=== PATIENT | female | born 1955 | race African-American/Black ===

== ENCOUNTER 2020-02-04 08:18 | Outpatient (CLI) | payer MEDICARE, SELFPAY ==
--- NOTE | ~2020-02-04 | DEXA_ITS ---
Bone Density Report Name: Tosha Aguirre Age: 64 Sex: Female Ethnicity: Black Date of : 1955 Indication: postmenopausal; cancer; hysterectomy; rheumatoid arthritis; Referring Provider: Nasreen FISCHER Study: Bone densitometry was performed. Exam Date: February 04, 2020 Accession number: [id number] Bone Density: Region BMD T-score Z-score Classification AP Spine (L1-L4) 0.968 -0.7 0.3 Normal Femoral Neck (Left) 0.967 1.1 1.4 Normal Total Hip (Left) 1.071 1.1 1.2 Normal Total Hip Bilateral Avg 1.059 1.0 1.2 Normal Femoral Neck (Right) 0.982 1.2 1.5 Normal Total Hip (Right) 1.045 0.8 1.1 Normal World Health Organization criteria for BMD impression classify patients as: Normal (T-score at or above -1.0), Osteopenia (T-score between -1.0 and -2.5), or Osteoporosis (T-score at or below -2.5). 10-year Fracture Risk: FRAX not reported because: All T-scores for Spine Total, Hip Total, Femoral Neck at or above -1.0 Previous Exams: Region Exam Age BMD T-score BMD Change BMD Change Date g/cm2 vs Baseline vs Previous AP Spine(L1-L4) 02/04/2020 64 0.968 -0.7 -0.313(-24.4%) -0.105(-9.8%)* 06/07/2015 59 1.074 0.2 -0.208(-16.2%) -0.070(-6.2%)# 04/16/2013 57 1.144 0.9 -0.137(-10.7%) -0.067(-5.5%)# 02/14/2011 55 1.211 1.5 -0.070(-5.5%)* -0.041(-3.2%)* 09/27/2008 52 1.252 1.9 -0.030(-2.3%)* -0.030(-2.3%)* 08/03/2004 48 1.281 2.1 Total Hip(Left) 02/04/2020 64 1.071 1.1 -0.164(-13.3%) -0.083(-7.2%)* 06/07/2015 59 1.154 1.7 -0.081(-6.6%)# 0.027(2.4%)# 04/16/2013 57 1.126 1.5 -0.108(-8.8%)# -0.085(-7.0%)# 02/14/2011 55 1.211 2.2 -0.023(-1.9%) -0.045(-3.6%)* 09/27/2008 52 1.256 2.6 0.022(1.7%) 0.022(1.7%) 08/03/2004 48 1.234 2.4 Total Hip(Right) 02/04/2020 64 1.045 0.8 -0.156(-12.9%) -0.109(-9.5%)* 06/07/2015 59 1.155 1.7 -0.046(-3.9%)# 0.034(3.0%)# 04/16/2013 57 1.121 1.5 -0.080(-6.7%)# -0.065(-5.5%)# 02/14/2011 55 1.186 2.0 -0.015(-1.2%) -0.005(-0.4%) 09/27/2008 52 1.191 2.0 -0.010(-0.8%) -0.010(-0.8%) 08/03/2004 48 1.201 2.1 *Denotes significance at 95% confidence level, LSC for AP Spine = 0.022 g/cm2, LSC for Total Hip = 0.027 g/cm2 Clinical Information Provided by Patient: Has rheumatoid arthritis Has used the following medications: Vitamin D, Calcium Has the following medical conditions: Cancer, Hysterectomy Patient maximum height was 65 Menopause Age: 49 Drinks caffe
--- NOTE | ~2020-02-04 | MM_ITS ---
EXAMINATION: MM screening bimal BI w dale HISTORY: Screening mammogram TECHNIQUE: Craniocaudal and mediolateral oblique 3-D tomosynthesis images were obtained and synthetic 2-D images were generated. CAD analysis was submitted and interpreted. COMPARISON: 12/24/2018, 12/09/2017 bilateral digital screening mammogram examinations 12/24/2017 diagnostic left mammogram and bilateral Limited breast ultrasound examination BREAST PARENCHYMAL COMPOSITION: There are scattered areas of fibroglandular density. FINDINGS: Again noted are scattered bilateral benign calcifications. There is no evidence of suspicio us mass, calcification, or architectural distortion to suggest malignancy in either breast. There has been no suspicious interval change. IMPRESSION: 1. No mammographic evidence of malignancy. 2. Recommend routine screening mammography in one year. BI-RADS Category 2: Benign finding(s). Reviewed, dictated and finalized at location A.
== END 2020-02-04 08:19 | disposition home or self-care (01) ==
PROVIDERS: PCP Family Medicine; Visit Provider Family Medicine
DX: Z12.31 Encounter for screening mammogram for malignant neoplasm of breast (principal); M81.0 Age-related osteoporosis without current pathological fracture; Z78.0 Asymptomatic menopausal state
CPT/HCPCS: 77063; 77067; 77080

== ENCOUNTER → 2020-03-22 08:17 | Outpatient (CLI) | payer MEDICARE, SELFPAY ==
--- NOTE | ~2020-03-22 | CT_ITS ---
EXAMINATION: CT abdomen pelvis wo con DATE: 03/22/2020 08:36 INDICATION: History of renal cell carcinoma. Left nephrectomy. TECHNIQUE: Computed tomography (CT) of the abdomen and pelvis was performed without intravenous contr ast. The dose-length product was 841.90 mGy-cm. Automated exposure control and iterative reconstructi on technique were employed. COMPARISON: CT dated 12/14/2014 FINDINGS: Lung bases unremarkable. Heart size normal. No significant pleural or pericardial effusion. Status post cholecystectomy. The liver, spleen, pancreas, adrenal glands and right kidney are unremarkable. Normal appendix. No ab normal masses or fluid collections in the left nephrectomy bed. There is osteoarthritis of the hips. Mild lumbar spondylosis. Small sclerotic lesion right ilium, likely bone island. No lytic defects. IMPRESSION: 1. No evidence for metastatic disease. Reviewed, dictated and finalized at location B.
== END ==
PROVIDERS: PCP Family Medicine; Visit Provider Family Medicine
DX: Z85.528 Personal history of other malignant neoplasm of kidney (principal)
CPT/HCPCS: 74176

== ENCOUNTER 2021-02-26 16:03 | Outpatient (CLI) | payer MEDICARE, SELFPAY ==
--- NOTE | ~2021-02-26 | MM_ITS ---
EXAMINATION: MM screening bimal BI w dale HISTORY: Screening mammogram TECHNIQUE: Craniocaudal and mediolateral oblique 3-D tomosynthesis images were obtained and synthetic 2-D images were generated. CAD analysis was submitted and interpreted. COMPARISON: No prior mammogram is available for comparison at this institution. BREAST PARENCHYMAL COMPOSITION: The breasts are heterogeneously dense, which may obscure small masses . FINDINGS: There are scattered bilateral benign calcifications. There is no evidence of suspicious mas s, calcification, or architectural distortion to suggest malignancy in either breast. There has been no suspicious interval change. IMPRESSION: 1. No mammographic evidence of malignancy. 2. Recommend routine screening mammography in one year. BI-RADS Category 2: Benign finding(s). Reviewed, dictated and finalized at location A.
== END 2021-02-26 16:04 | disposition home or self-care (01) ==
LOC: ANHIMG 16:06
PROVIDERS: PCP Family Medicine; Visit Provider Family Medicine
DX: Z12.31 Encounter for screening mammogram for malignant neoplasm of breast (principal)
CPT/HCPCS: 77063; 77067

== ENCOUNTER → 2021-05-14 13:26 | Outpatient (CLI) | payer MEDICARE, SELFPAY ==
--- NOTE | ~2021-05-14 | XR_ITS ---
EXAMINATION: XR lumbar spine min 4V DATE: 05/14/2021 13:55 INDICATION: Dorsalgia unspecified TECHNIQUE: Anteroposterior, lateral, and bilateral oblique views of the lumbar spine, and cone-down l ateral view of the lumbosacral junction were obtained. COMPARISON: None. FINDINGS: There is no fracture, dislocation, or subluxation. The vertebral body heights are maintaine d. There is mild loss of intervertebral disc space height at L5-S1. Mild to moderate facet osteoarthr itis is present in the lower lumbar spine. Cholecystectomy clips are noted. IMPRESSION: 1. Mild lumbar spondylosis without acute findings. Reviewed, dictated and finalized at location B.
== END ==
PROVIDERS: PCP Family Medicine; Visit Provider Physician Assistant
DX: M47.816 Spondylosis without myelopathy or radiculopathy, lumbar region (principal)
CPT/HCPCS: 72110

== ENCOUNTER 2022-05-22 08:09 | Outpatient (CLI) | payer MEDICARE, SELFPAY ==
--- NOTE | ~2022-05-22 | MM_ITS ---
EXAMINATION: MM screening bimal BI w dale HISTORY: Screening mammogram TECHNIQUE: Craniocaudal and mediolateral oblique 3-D tomosynthesis images were obtained and synthetic 2-D images were generated. CAD analysis was submitted and interpreted. COMPARISON: 02/26/2021, 02/04/2020, 12/24/2018 bilateral screening mammogram examinations BREAST PARENCHYMAL COMPOSITION: The breasts are heterogeneously dense, which may obscure small masses . FINDINGS: Stable mild fibroglandular asymmetry. Scattered bilateral benign calcifications. There is n o evidence of suspicious mass, calcification, or architectural distortion to suggest malignancy in ei ther breast. There has been no suspicious interval change. IMPRESSION: 1. No mammographic evidence of malignancy. 2. Recommend routine screening mammography in one year. BI-RADS Category 2: Benign finding(s). Reviewed, dictated and finalized at location A.
--- NOTE | ~2022-05-22 | DEXA_ITS ---
Bone Density Report Name: CHAR SANTA Age: 66 Sex: Female Ethnicity: Black Date of : 1955 Indication: postmenopausal; screening for osteoporosis; cancer; hysterectomy; rheumatoid arthritis; Referring Provider: LUIS MANUEL ROJO Study: Bone densitometry was performed. Exam Date: May 22, 2022 Accession number: [id number] Bone Density: Region BMD T-score Z-score Classification AP Spine(L1-L4) 0.911 -1.2 -0.1 Osteopenia Femoral Neck (Left) 0.951 0.9 1.4 Normal Total Hip (Left) 1.021 0.6 1.0 Normal Femoral Neck (Right) 0.991 1.3 1.6 Normal Total Hip (Right) 0.991 0.4 0.8 Normal Total Hip Mean 1.006 0.5 0.9 Normal World Health Organization criteria for BMD impression classify patients as: Normal (T-score at or above -1.0), Osteopenia (T-score between -1.0 and -2.5), or Osteoporosis (T-score at or below -2.5). 10-year Fracture Risk(1): Major Osteoporotic Fracture 3.5% Hip Fracture 0.1% Reported Risk Factors: [place] (Black), Neck BMD=0.951, BMI=26.6, rheumatoid arthritis (1) FRAX(R) Version 3.08. Fracture probability calculated for an untreated patient. Fracture probability may be lower if the patient has received treatment. Previous Exams: Region Exam Age BMD T-score BMD Change BMD Change Date g/cm2 vs Baseline vs Previous AP Spine (L1-L4) 05/22/2022 66 0.911 -1.2 -0.163 (-15.2% -0.058 (-6.0%) 02/04/2020 64 0.968 -0.7 -0.105 (-9.8%) -0.105 (-9.8%) 06/07/2015 59 1.074 0.2 Total Hip(Left) 05/22/2022 66 1.021 0.6 -0.132 (-11.5% -0.049 (-4.6%) 02/04/2020 64 1.071 1.1 -0.083 (-7.2%) -0.083 (-7.2%) 06/07/2015 59 1.154 1.7 Total Hip(Right) 05/22/2022 66 0.991 0.4 -0.163 (-14.1% -0.163 (-14.1% 06/07/2015 59 1.155 1.7 *Denotes significance at 95% confidence level, LSC for AP Spine = 0.022 g/cm2, LSC for Total Hip = 0.027 g/cm2 Clinical Information Provided by Patient: Has rheumatoid arthritis Has used the following medications: Calcium Has the following medical conditions: Cancer, Hysterectomy Patient maximum height was 64 Menopause Age: 49 Does not regularly consume dairy products Drinks caffeinated beverages Onset of menses at age 13 Number of children 2 Impression: The patient has low bone mass, based on the Total Spine T-score. The patient has an estimated ten-year risk of hip fracture of 0.1% and an estimated ten-year risk of major fracture
== END 2022-05-22 08:10 | disposition home or self-care (01) ==
PROVIDERS: PCP Family Medicine; Visit Provider Family Medicine
DX: Z12.31 Encounter for screening mammogram for malignant neoplasm of breast (principal); M81.0 Age-related osteoporosis without current pathological fracture; M85.88 Other specified disorders of bone density and structure, other site
CPT/HCPCS: 77063; 77067; 77080

== ENCOUNTER 2022-07-02 15:18 | Outpatient (CLI) | payer MEDICARE, SELFPAY ==
[2022-07-03 11:21] LABS: Kit Draw Collected
== END 2022-07-02 15:19 | disposition home or self-care (01) ==
LOC: ANHGOSHLAB 15:19
PROVIDERS: PCP Family Medicine; Visit Provider Family Medicine
DX: R79.89 Other specified abnormal findings of blood chemistry (principal); Z90.5 Acquired absence of kidney; Z53.8 Procedure and treatment not carried out for other reasons
CPT/HCPCS: 99199; 36415

== ENCOUNTER → 2022-09-22 11:28 | Outpatient (CLI) | payer MEDICARE, SELFPAY ==
--- NOTE | ~2022-09-22 | US_ITS ---
US renal BI 09/22/2022 11:47 Procedure: Realtime transabdominal ultrasound of the kidneys and bladder. Indication: Chronic renal disease stage III. Diabetes. Comparison: No prior studies for comparison. Findings: Right renal echotexture is normal without hydronephrosis, contour deforming mass or renal c alculus. There is a right renal cyst at the upper pole measuring 12 mm. The right kidney measures 11. 7 cm and left kidney is surgically absent. Bladder is unremarkable. Impression: 1: Right renal cyst measuring 1.2 cm. 2: Status post left nephrectomy. Reviewed, dictated and finalized at location A. HELPER Impression: 1: Right renal cyst measuring 1.2 cm. 2: Status post left nephrectomy.
== END ==
PROVIDERS: PCP Family Medicine; Visit Provider Internal Medicine Nephrology
DX: N18.32 Chronic kidney disease, stage 3b (principal); E11.29 Type 2 diabetes mellitus with other diabetic kidney complication; Z90.5 Acquired absence of kidney; N28.1 Cyst of kidney, acquired
CPT/HCPCS: 76775

== ENCOUNTER 2023-05-25 07:17 | Outpatient (CLI) | payer MEDICARE, SELFPAY ==
--- NOTE | ~2023-05-25 | MM_ITS ---
EXAMINATION: MM screening bimal BI w dale HISTORY: Screening TECHNIQUE: Craniocaudal and mediolateral oblique 3-D tomosynthesis images were obtained and synthetic 2-D images were generated. CAD analysis was submitted and interpreted. COMPARISON: Comparison to multiple prior studies sequentially, with oldest reviewed study dated 12/2017. BREAST PARENCHYMAL COMPOSITION: The breasts are heterogeneously dense, which may obscure small masses FINDINGS: There is no evidence of suspicious mass, calcification, or architectural distortion to sugg est malignancy in either breast. There has been no suspicious interval change. IMPRESSION: 1. No mammographic evidence of malignancy. 2. Recommend routine screening mammography in one year. BI-RADS Category 1: Negative Reviewed, dictated and finalized at location A.
== END 2023-05-25 07:18 | disposition home or self-care (01) ==
LOC: ANHIMG 07:19
PROVIDERS: PCP Family Medicine; Visit Provider Physician Assistant
DX: Z12.31 Encounter for screening mammogram for malignant neoplasm of breast (principal)
CPT/HCPCS: 77063; 77067

== ENCOUNTER → 2023-07-15 13:46 | Outpatient (CLI) | payer MEDICARE, SELFPAY ==
--- NOTE | ~2023-07-15 | CT_ITS ---
EXAMINATION: CT soft tissue neck w con DATE: 07/15/2023 14:19 INDICATION: Left neck mass. TECHNIQUE: Computed tomography (CT) of the neck was performed with 75 mL Omnipaque-350 intravenous co ntrast. Automated exposure control and iterative reconstruction technique were employed. The dose-berlin gth product was 363.25 mGy-cm. COMPARISON: None FINDINGS: There is a 2.5 cm hypoechoic mass in left parotid gland. There are nodules in the thyroid m easuring up to 9 mm, likely not clinically significant. There are no pathologically enlarged lymph no karri. The paranasal sinuses are clear. The mastoid air cells are normal. There is mild cervical spondy losis. IMPRESSION: 1. 2.5 cm mass in left parotid gland. The differential diagnosis includes benign mixed tumor, Warthin tumor, and less likely gold metastatic disease or primary malignancy. Ultrasound-guided fine-needle aspiration is recommended. Reviewed, dictated and finalized at location E. EL MAKING MACHINE OPERATOR IMPRESSION: 1. 2.5 cm mass in left parotid gland. The differential diagnosis includes benig n mixed tumor, Warthin tumor, and less likely gold metastatic disease or prima ry malignancy. Ultrasound-guided fine-needle aspiration is recommended.
[2023-07-15 14:08] LABS: Estimated Glomerular Filt Rate 49
== END ==
PROVIDERS: PCP Family Medicine; Visit Provider Physician Assistant
DX: R22.1 Localized swelling, mass and lump, neck (principal); D37.030 Neoplasm of uncertain behavior of the parotid salivary glands
CPT/HCPCS: 70491; Q9967

== ENCOUNTER 2023-08-19 12:50 | Outpatient (CLI) | payer MEDICARE, SELFPAY ==
--- NOTE | ~2023-08-19 | US_ITS ---
EXAMINATION: US FNA w image guidance DATE: 08/19/2023 13:38 INDICATION: Left parotid mass. TECHNIQUE: The procedure and its benefits and risks were discussed with the patient. Risks specifically discusse d included bleeding. The patient verbalized understanding of the risks and agreed to proceed. The nec k was prepped and draped in the usual sterile manner. 1% lidocaine was used for local anesthesia. 6 passes were made with a 25G needle into the lesion under ultrasound guidance. There were no immedia te complications. FINDINGS: Grayscale ultrasound images demonstrate needles advanced into a 2.4 x 2.0 x 1.0 cm cyst without solid component in left parotid gland for biopsy. IMPRESSION: 1. Ultrasound-guided fine needle aspiration of contents of a 2.4 cm cyst in left parotid gland. No s olid portion was identified for biopsy.. Reviewed, dictated and finalized at location A. ICAL BIOCHEMICAL GENETICIST IMPRESSION: 1. Ultrasound-guided fine needle aspiration of contents of a 2.4 cm cyst in le ft parotid gland. No solid portion was identified for biopsy..
== END 2023-08-19 12:51 | disposition home or self-care (01) ==
PROVIDERS: PCP Family Medicine; Visit Provider Physician Assistant
DX: R22.1 Localized swelling, mass and lump, neck (principal)
CPT/HCPCS: 10005; 88108; 88172; 88305

== ENCOUNTER 2024-01-31 08:16 | Emergency (ER) | payer MEDICARE, SELFPAY ==
[2024-01-31 08:30] VITALS: BP 94/76; PULSE 94; RESP 16; TEMP 37.1; O2SAT 99
[2024-01-31 08:39] VITALS: BP 94/76; PULSE 94; RESP 16; TEMP 37.1; O2SAT 99
--- NOTE | 2024-01-31 08:46 | ED.URI ---
HPI - URI/Sore Throat General Chief Complaint: Upper Respiratory Infection Stated Complaint: Sore Throat Time Seen by Provider: 01/31/24 08:17 Source: patient, RN notes reviewed and old records reviewed Mode of arrival: ambulatory Limitations: no limitations History of Present Illness HPI Narrative: 68-year-old female to [facility] for complaint of Zahida like symptoms that started 6 days ago. Patient endorses dry cough, headache, sore throat. Patient reports that upon awakening this morning both eyes were matted shut. Patient denies fever, ear pain, nausea, vomiting, shortness chest pain. Patient in no acute distress in exam room. Respirations even and non labored. Patient able to tolerate fluids by mouth. Related Data Home Medications Medication Instructions Recorded Confirmed aspirin 81 mg tablet,delayed 81 mg PO DAILY 10/03/19 01/31/24 release calcium carbonate (Calcium 600) 600 mg PO BID 10/03/19 01/31/24 cholecalciferol (vitamin D3) 125 125 mcg PO DAILY 10/03/19 01/31/24 mcg (5,000 unit) capsule folic acid 1 mg tablet 1 mg PO DAILY 10/03/19 01/31/24 multivitamin 1 tablet PO DAILY 10/03/19 01/31/24 hydroxychloroquine 200 mg tablet 200 mg PO BID 02/19/22 01/31/24 (Plaquenil) latanoprost 0.005 % eye drops 1 drp EACH EYE QPM 04/14/23 01/31/24 Allergies Allergy/AdvReac Type Severity Reaction Status Date / Time methotrexate Allergy Unknown Unknown Verified 01/31/24 08:23 Review of Systems Review of Systems: All systems reviewed & are unremarkable except as noted in HPI and below Constitutional: Constitutional: Reports as per HPI and Reports headache(s) Eyes: Eyes: Reports as per HPI, Denies change in vision, Reports eye discharge, Reports irritation and Reports itchy eyes Comments: Pt endorses that her eyes were matted shut this morning upon wakening. ENT: Reports as per HPI and Reports sore throat Cardiovascular: Cardiovascular: Reports no additional cardiovascular complaints, Denies chest pain and Denies dyspnea Respiratory: Respiratory: Reports no additional respiratory complaints, Reports cough and Denies dyspnea Musculoskeletal: Musculoskeletal: Reports no additional musculoskeletal complaints Neurologic: Reports system reviewed and no additional complaints, except as documented Psychiatric: Psychiatric: Reports no additional psychiatric complaints PMFSH Past Medical History Medical History Benign essential HTN GERD (gastroesophageal reflux disease) Mixed hyperlipidemia Peripheral neuropathy Renal cell carcinoma surgery 2014 Surgical History Surgical History H/O left nephrectomy 2014 renal cell carcinoma H/O: hysterectomy History of 2 sections History of cardiac cath History of kidney removal Hx of cholecystectomy Hx of ovarian cystectomy Family History Family History Father Diabetes mellitus, Onset Age: 70 Family history of cardiovascular disease, Onset Age: 70 Family history of coronary artery disease, Onset Age: 70 Mother Diabetes mellitus Family history of malignant neoplasm of breast in first degree relative, Onset Age: 70 Other Family history of arthritis Family history of heart disease in male family member before age 55 Hypertension Social History Social History Smoking status: Never smoker Alcohol intake: never Substance use: never Do You Feel Safe in your Home?: Yes Lack of Transportation: No Lack of Food: Never True Current Housing: I Have Housing Concerned About Future Housing: No Difficulty Paying Gas/Electric Bills: No Difficulty Paying for Meds: No Currently Unemployed: No Education: Associate Degree Difficulty w/ Childcare or Family Care: No
== END 2024-01-31 09:16 | disposition home or self-care (01) ==
PROVIDERS: Emergency Provider Nurse Practitioner Family; PCP Family Medicine
DX: J06.9 Acute upper respiratory infection, unspecified (principal); H10.9 Unspecified conjunctivitis; I10 Essential (primary) hypertension; K21.9 Gastro-esophageal reflux disease without esophagitis; E78.2 Mixed hyperlipidemia; G62.9 Polyneuropathy, unspecified; Z85.528 Personal history of other malignant neoplasm of kidney; Z90.5 Acquired absence of kidney; Z79.82 Long term (current) use of aspirin
CPT/HCPCS: 87081; 87880; 99213; G0463

== ENCOUNTER 2024-05-27 07:11 | Outpatient (CLI) | payer MEDICARE, SELFPAY ==
--- NOTE | ~2024-05-27 | MM_ITS ---
EXAMINATION: MM screening bimal BI w dale HISTORY: Screening mammogram, family history of breast cancer in her mother. TECHNIQUE: Craniocaudal and mediolateral oblique 3-D tomosynthesis images were obtained and synthetic 2-D images were generated. CAD analysis was submitted and interpreted. COMPARISON: 05/25/2023, 05/22/2022, 02/26/2021, 02/04/2020 BREAST PARENCHYMAL COMPOSITION:Dense: The breasts are heterogeneously dense, which may obscure small masses. FINDINGS: No suspicious mass, calcification, or architectural distortion are identified in either tab ast to suggest malignancy. There has been no suspicious interval change. IMPRESSION: No mammographic evidence of malignancy. Recommend routine screening mammography in one year. BI-RADS Category 1: Negative Reviewed, dictated and finalized at location .
== END 2024-05-27 07:12 | disposition home or self-care (01) ==
LOC: ANHIMG 07:13
PROVIDERS: PCP Family Medicine; Visit Provider Family Medicine
DX: Z12.31 Encounter for screening mammogram for malignant neoplasm of breast (principal)
CPT/HCPCS: 77063; 77067

== ENCOUNTER 2024-11-28 14:18 | Outpatient (CLI) | payer MEDICARE, SELFPAY ==
--- NOTE | ~2024-11-28 | DEXA_ITS ---
Bone Density Report Name: CHAR SANTA Age: 68 Sex: Female Ethnicity: Black Date of : 1955 Indication: osteopenia; cancer; hysterectomy; rheumatoid arthritis; Referring Provider: ANGELA RODAS Study: Bone densitometry was performed. Exam Date: November 28, 2024 Accession number: [id number] Bone Density: Region BMD T-score Z-score Classification AP Spine(L1-L4) 0.917 -1.2 0.2 Osteopenia Femoral Neck (Left) 0.907 0.5 1.1 Normal Total Hip (Left) 1.027 0.7 1.1 Normal Femoral Neck (Right) 0.902 0.5 1.1 Normal Total Hip (Right) 0.997 0.5 0.9 Normal Total Hip Mean 1.012 0.6 1.0 Normal World Health Organization criteria for BMD impression classify patients as: Normal (T-score at or above -1.0), Osteopenia (T-score between -1.0 and -2.5), or Osteoporosis (T-score at or below -2.5). 10-year Fracture Risk(1): Major Osteoporotic Fracture 3.7% Hip Fracture 0.1% Reported Risk Factors: [place] (Black), Neck BMD=0.907, BMI=26.2, rheumatoid arthritis (1) FRAX(R) Version 3.08. Fracture probability calculated for an untreated patient. Fracture probability may be lower if the patient has received treatment. Previous Exams: Region Exam Age BMD T-score BMD Change BMD Change Date g/cm2 vs Baseline vs Previous AP Spine (L1-L4) 11/28/2024 68 0.917 -1.2 -0.157 (-14.6% 0.006 (0.7%) 05/22/2022 66 0.911 -1.2 -0.163 (-15.2% -0.058 (-6.0%) 02/04/2020 64 0.968 -0.7 -0.105 (-9.8%) -0.105 (-9.8%) 06/07/2015 59 1.074 0.2 Total Hip(Left) 11/28/2024 68 1.027 0.7 -0.126 (-10.9% 0.006 (0.6%) 05/22/2022 66 1.021 0.6 -0.132 (-11.5% -0.049 (-4.6%) 02/04/2020 64 1.071 1.1 -0.083 (-7.2%) -0.083 (-7.2%) 06/07/2015 59 1.154 1.7 Total Hip(Right) 11/28/2024 68 0.997 0.5 -0.157 (-13.6% 0.006 (0.6%) 05/22/2022 66 0.991 0.4 -0.163 (-14.1% -0.163 (-14.1% 06/07/2015 59 1.155 1.7 *Denotes significance at 95% confidence level, LSC for AP Spine = 0.022 g/cm2, LSC for Total Hip = 0.027 g/cm2 Clinical Information Provided by Patient: Has rheumatoid arthritis Has used the following medications: Calcium Has the following medical conditions: Cancer, Hysterectomy Patient maximum height was 65.0 Menopause Age: 49 Onset of menses at age 13 Number of children 2 Impression: The patient has low bone mass, based on the Total Spine T-score. The patient has an estimated ten-year risk of hip fracture of 0.1% and an estimated ten-year risk of major fracture of 3.7%, based on the WHO FRAX algorithm. No significant bone loss was observed. Discussion: BONE DENSITY IS LOW AT ONE OR MORE SKELETAL SITES. This patient's lowest T-score is low at one or more skeletal sites. It meets the World Health Organization's (WHO) criteria for ?low bone mass? (T-score between -1.0 and -2.5). The patient's 10-year risk of fracture as calculated by FRAX is less than the threshold where pharmacological therapy is recommended by the National Osteoporosis Foundation (NOF). However, all treatment decisions require clinical judgment and consideration of individual patient factors, including patient preferences, comorbidities, previous drug use, risk factors not captured in the FRAX model (e.g., frailty, falls, vitamin D deficiency, increased bone turnover, interval significant decline in bone density) and possible under or overestimation of fracture risk by FRAX. The patient should follow a healthful lifestyle (good nutrition with adequate calcium and vitamin D, and appropriate weight-bearing exercise). Follow-Up: Consider repeating this study in 2 to 3 years to reassess this patient's status, or sooner if there is some new clinical indication. Reported by: CALEB on 11/28/2024 2:51:00 PM. Reviewed, dictated and finalized at location AHusam HARPER
--- OUTSIDE RECORDS SUMMARY | 2024-11-28 16:30 | XMS_ITS | Encounter Summary ---
Author Organization [facility] Address [address] [place] [address] Phone Care Team Providers Care Vacuum Bottle Assembler Name Role Phone Emmy Aguilera MD Primary Care Provider + Encounter Details Date Type Department Care Team (Late st Contact Info) Description 05/30/2024 Orders Only [facility] Scanning, Provider Social History Tobacco Use Types Packs/Day Years Used Date Smoking Tobacco: Never Smokeless Tobacco: Never Alcohol Use Standard Drinks/Week Comments Yes 0 (1 standard drink = 0.6 oz pur e alcohol) 1 per year AUDIT-C Answer Date Recorded Q1: How often do you have a drink containing alcohol? Never 12/15/2023 Q2: How many drinks containi ng alcohol do you have on a typical day when you are drinking? Patient does not drink Frequency of Binge Drinking Not on file 05/2024 Comments Unknown Sex and Gender Information Value Date Recorded Sex Assigned at Not on file Legal Sex Female 2:48 AM [employer] Gender Identity Female 05/04/2018 2:21 PM CDT Sexual Orientation Not on file documented as of this encounter Plan of Treatment Not on file documented as of this encounter Procedures Procedure Name Priority Date/Time Associated Diagnosis Comments SCAN - LABS 05/30/2024 documented in this encounter Results * SCAN - LABS (05/30/2024) us Provider Scanning Final Result documented in this encounter Visit Diagnoses Not on filedocumented in this encounter Care Teams Vacuum Bottle Assembler Relationship Specialty Start Date End Date Emmy Aguilera MD PCP - General Family Medicine 12/16/22 documented as of this encounter
--- OUTSIDE RECORDS SUMMARY | 2024-11-28 16:30 | XMS_ITS | Clinical Summary ---
Author Organization [facility] Address [address] [place] [id number] Phone Care Team Providers Care Insurance Sales Executive Name Role Phone Emmy Aguilera MD Primary Care Provider [phone] Allergies Active Allergy Reactions Criticality Noted Date Comments Iodinated Contrast Media Unknown 07/14/2022 Methotrexate Unknown 07/14/2022 Medications Medication Sig Dispensed Refills Start Date End Date Status aspirin (ST DION) 81 MG EC tablet 1 (one) time each day Active Calcium Carb-Cholecalciferol 600-20 MG-MCG tablet 04/07/2019 Acti ve cholecalciferol, vitamin D3, 5,000 Units tablet tablet 1 (one) time each day 02/03/2017 Active ferrous sulfate 325 (65 Fe) MG tablet Take by mouth daily Active folic acid (FOLVITE) 1 MG tablet Take 1 tablet by mouth 1 (one) time each day 11/29/2018 Active glipiZIDE-metFORMIN (METAGLIP) 5-500 MG per tablet 04/17/2022 Active hydroxychloroquine (PLAQUENIL) 200 MG tablet 06/06/2022 Active lisinopril (PRINIVIL) 10 MG tablet 05/09/2022 Active metFORMIN XR 500 MG 24 hr tablet 06/11/2022 Active metoprolol succinate XL (TOPROL-XL) 25 MG 24 hr tablet 06/18/2022 Active simvastatin (ZOCOR) 20 MG tablet 05/09/2022 Active sulfaSALAzine (AZULFIDINE) 500 MG EC tablet Take 1,000 mg by mouth in the morning and 1,000 mg in the evening. 02/25/2021 Active traMADol (ULTRAM) 50 MG tablet Take by mouth 07/30/2018 Active Active Problems Problem Noted Date Diagnosed Date Renal cell carcinoma <Left side> 07/14/2022 Hypertension 07/14/2022 Hyperlipidemia 07/14/2022 Diabetic peripheral neuropathy 07/14/2022 Diabetes mellitus 07/14/2022 Bilateral rheumatoid arthritis of hands 08/10/20 18 Overview (07/09/2022): Seropositive, erosive RA (RF+CCP+). X-rays done in April 2016 showed erosions consistent with rheumatoid arthritis. She had good response to MTX but unfortunately had increase in LFTs, so was switched to sulfasalazine in 04/2018. Last Assessment & Plan: The patient reports improved symptoms over last month after starting Sulfasalazine. Still with some persistent joint swelling in hands, but we expect this to improve over time as sulfasalazine takes full effect Recommendations: Continue current Sulfasalzine regimen Follow-up labs and appointment in 3 months Liver enzymes abnormal 08/10/2018 Overview (07/09/2022): Occurring since at least initiation of methotrexate in 2015 Last Assessment & Plan: We will order RUQ U/S and Acute hepatitis Panel given persistence of LFT elevation History of nephrectomy 09/07/2014 Overview (07/14/2022): left Family History Medical History Relation Comments Diabetes mellitus Father Heart disease Father Breast cancer Mother Diabetes mellitus Mother Relation Status Comments Father Mother Social History Tobacco Use Types Packs/Day Years Used Date Smoking Tobacco: Never Smokeless Tobacco: Never Tobacco Cessation:Counseling Given: Not Answered Alcohol Use Standard Drinks/Week Comments Yes 0 (1 standard drink = 0.6 oz pur e alcohol) once a year Sex and Gender Information Value Date Recorded Sex Assigned at Not on file Gender Identity Not on file Sexual Orientation Not on file Last Filed Vital Signs Vital Sign Reading Time Taken Comments Blood Pressure 112/68 07/14/2022 9:05 AM ENVELOPE CUTTER Pulse - - Temperature 36.1 C (97 F) 07/14/2022 9:05 AM ENVELOPE CUTTER Respiratory Rate 18 07/14/2022 9:05 AM ENVELOPE CUTTER Oxygen Saturation - - Inhaled Oxygen Concentration - - Weight 73.5 kg (162 lb) 07/14/2022 9:05 AM ENVELOPE CUTTER Height 165.1 cm (5' 5 ) 07/14/2022 9:05 AM ENVELOPE CUTTER Body Mass Index 26.96 07/14/2022 9:05 AM ENVELOPE CUTTER Plan of Treatment Health Maintenance Due Date Last Done Comments Pneumococcal PPSV23/PCV13 65 + Years / Low and Medium Risk (1 of 4 - PCV) 12/06/2019 Influenza Vaccine (#1) 2024 Care Teams Insurance Sales Executive Relationship Specialty Start Date End Date Emmy Aguilera MD [address] [place] [phone] PCP - General Family Medicine 07/08/22
--- OUTSIDE RECORDS SUMMARY | 2024-11-28 16:30 | XMS_ITS | Encounter Summary ---
Author Organization [facility] Address [address] [place] [address] Phone Care Team Providers Care Clinical Nurse Leader Name Role Phone Emmy Aguilera MD Primary Care Provider + Encounter Details Date Type Department Care Team (Late st Contact Info) Description 12/04/2023 Orders Only [facility] Scanning, Provider Social History Tobacco Use Types Packs/Day Years Used Date Smoking Tobacco: Never Smokeless Tobacco: Never Alcohol Use Standard Drinks/Week Comments Yes 0 (1 standard drink = 0.6 oz pur e alcohol) 1 per year AUDIT-C Answer Date Recorded Q1: How often do you have a drink containing alc ohol? Never 06/16/2023 Average Number of Drinks Not on file 023 Frequency of Binge Drinking Not on file 06/07 Comments Unknown Sex and Gender Information Value Date Recorded Sex Assigned at Not on file Legal Sex Female 2:48 AM SHIP'S PILOT Gender Identity Female 05/04/2018 2:21 PM CDT Sexual Orientation Not on file documented as of this encounter Plan of Treatment Not on file documented as of this encounter Procedures Procedure Name Priority Date/Time Associated Diagnosis Comments SCAN - LABS 12/04/2023 documented in this encounter Results * SCAN - LABS (12/04/2023) us Provider Scanning Edited Result - Final documented in this encounter Visit Diagnoses Not on filedocumented in this encounter Care Teams Clinical Nurse Leader Relationship Specialty Start Date End Date Emmy Aguilera MD PCP - General Family Medicine 12/16/22 documented as of this encounter
--- OUTSIDE RECORDS SUMMARY | 2024-11-28 16:31 | XMS_ITS | Referral Summary ---
Author Organization [facility] Address [address] [place] [address] Care Team Providers Care Director Enterprise Systems Name Role Phone Emmy Aguilera MD Primary Care Provider + Encounters Date Type Department Care Team Description 10/11/2024 Telephone [facility] Card[facility] [address] [place] [address] Sebastián Herrera MD 09/20/2024 9:15 AM SPECIMEN PREPARATION ASSISTANT Office Visit [facility] Cardiology at [address] [place] [address] Sebastián Herrera MD Hypertension associated with diabetes (HCC) (Primary Dx); Hyperlipidemia associated with type 2 diabetes mellitus (HCC); Coronary artery disease involving [place] coronary artery of [place] heart without angina pectoris; Atypical chest pain from Last 3 Months Allergies Active Allergy Reactions Criticality Noted Date Comments Iodinated Contrast Media Unknown 07/14/2022 Methotrexate Other (See comments) Low 07/14/2022 Elevated liver enzymes Medications aspirin 81 mg tablet daily. Active lisinopril (PRINIVIL,ZESTR IL) 10 mg tablet Take 1 tablet (10 mg total) by mouth daily 8 Active simvastatin (ZOCOR) 20 mg tablet Take 1 tablet (20 mg total) by mouth nightly 8 Active ferrous sulfate 325 mg (65 mg of elemental iron) tabletIndicatio ns:Iron Deficiency Anemia Take 1 tablet (325 mg total) by mouth daily with breakfast Active folic acid (FOLVITE) 1 mg tablet TAKE 1 TABLET DAILY 90 tablet 3 9 Active multivit,iron,m inerals/lutein (CENTRUM SILVER ULTRA WOMEN'S ORAL) 9 Active calcium carbonate-vitam in D3 1,500 mg (600mg elemental) -800 unit per tablet 9 Active OneTouch Verio test strips strip 3 Active OneTouch Delica Plus Lancet 33 gauge misc 3 Active latanoprost (XALATAN) 0.005 % ophthalmic solution 3 Active Mounjaro 5 mg/0.5 mL pen injector Inject 7.5 mg under the skin once a week 4 Active hydroxychloroqu ine (PLAQUENIL) 200 mg tabletIndicatio ns:Rheumatoid arthritis involving multiple sites with positive rheumatoid factor (HCC) Take 1 tab alternating with 2 tabs every other day 135 tablet 1 4 Active Active Problems Problem Noted Date Diagnosed Date Mixed hyperlipidemia 06/30/2024 Essential (primary) hypertension 06/30/2024 H/O left nephrectomy 06/30/2024 Abnormal stress test 06/30/2024 Atypical chest pain 06/30/2024 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 X-rays done in April 2016 showed erosions consistent with rheumatoid arthritis. She had good response to MTX but unfortunately had increase in LFTs, so was switched to sulfasalazine in 04/2018. Assessment & Plan (08/10/2018 11:11 AM SPECIMEN PREPARATION ASSISTANT): The patient reports improved symptoms over last month after starting Sulfasalazine. Still with some persistent joint swelling in hands, but we expect this to improve over time as sulfasalazine takes full effect Recommendations: Continue current Sulfasalzine regimen Follow-up labs and appointment in 3 months Abnormal liver enzymes 08/10/2018 Overview (08/10/2018): Occurring since at least initiation of methotrexate in 2016 Assessment & Plan (08/10/2018 11:08 AM SPECIMEN PREPARATION ASSISTANT): We will order RUQ U/S and Acute hepatitis Panel given persistence of LFT elevation Social History Tobacco Use Types Packs/Day Years Used Date Smoking Tobacco: Never Cigarettes Smokeless Tobacco: Never Tobacco Cessation:Counseling Given: Not Answered Comments:Never smoker, some passive exposure Alcohol Use Standard Drinks/Week Comments Yes 0 (1 standard drink = 0.6 oz pur e alcohol) 1 per year AUDIT-C Answer Date Recorded Frequency of Alcohol Consumption Not on file 06/14/2024 Q2: How many drinks containi ng alcohol do you have on a typical day when you are drinking? Patient does not drink Frequency of Binge Drinking Not on file 04/2024 Comments Unknown Sex and Gender Information Value Date Recorded Sex Assigned at Not on file Legal Sex Female 2:48 AM SPECIMEN PREPARATION ASSISTANT Gender Identity Female 05/04/2018 2:21 PM CDT Sexual Orientation Not on file Last Filed Vital Signs Vital Sign Reading Time Taken Comments Blood Pressure 112/62 09/20/2024 9:10 AM SPECIMEN PREPARATION ASSISTANT Pulse 94 09/20/2024 9:10 AM SPECIMEN PREPARATION ASSISTANT Temperature 36.7 C (98 F) 06/14/2024 8:57 AM CDT Respiratory Rate 16 09/20/2024 9:10 AM SPECIMEN PREPARATION ASSISTANT Oxygen Saturation 98% 06/14/2024 8:57 AM CDT Inhaled Oxygen Concentration - - Weight 69.9 kg (154 lb) 09/20/2024 9:10 AM SPECIMEN PREPARATION ASSISTANT Height 165.1 cm (5' 5 ) 09/20/2024 9:10 AM SPECIMEN PREPARATION ASSISTANT Body Mass Index 25.63 09/20/2024 9:10 AM SPECIMEN PREPARATION ASSISTANT Plan of Treatment Not on file Procedures Procedure Name Priority Date/Time Associated Diagnosis Comments LIPID PANEL Routine 05/30/2024 9:11 AM CDT COMPREHENSIVE METABOLIC PANEL Routine 09/14/2021 8:16 AM SPECIMEN PREPARATION ASSISTANT Rheumatoid arthritis involving multiple sites with positive rheumatoid factor (HCC) Long-term use of high-risk medication HEPATITIS PANEL, ACUTE Routine 8 8:00 AM SPECIMEN PREPARATION ASSISTANT Abnormal liver enzymes from Last 3 Months or Most Recently Relevant to Health Maintenance Results * Lipid panel (05/30/2024 9:11 AM CDT) SCRIBED Cholesterol, Total 125 0 - 200 EXTERNAL LAB SCRIBED HDL 64 40 - 100 EXTERNAL LAB SCRIBED LDL 44 0 - 100 EXTERNAL LAB SCRIBED Triglycerides 89 0 - 150 EXTERNAL LAB Blood 05/30/2024 9:11 AM CDT us Historical Provider LAB BLOOD ORDERABLES Tori l Result EXTERNAL LAB * (ABNORMAL) Comprehensive metabolic panel (09/14/2021 8:16 AM SPECIMEN PREPARATION ASSISTANT) Glucose 90 65 - 99 mg/dL [facility] Comment: Fasting reference interval BUN 27(H) 7 - 25 mg/dL [facility] Creatinine 1.15(H) 0.50 - 0.99 mg/dL [facility] Comment: For patients >49 years of age, the reference limit for Creatinine is approximately 13% higher for people identified as -[place]. eGFR NON-AFR. CITIZEN OF [place] 50(L) > OR = 60 mL/min/1. 73m2 [facility] EGFR 57(L) > OR = 60 mL/min/1. 73m2 [facility] BUN/creat ratio 23(H) 6 - 22 (calc) [facility] Sodium 141 135 - 146 mmol/L [facility] Potassium, pl 4.6 3.5 - 5.3 mmol/L [facility] Chloride 106 98 - 110 mmol/L [facility] CO2 28 20 - 32 mmol/L [facility] Calcium 10.2 8.6 - 10.4 mg/dL [facility] Protein, sr 6.9 6.1 - 8.1 g/dL [facility] Albumin 4.2 3.6 - 5.1 g/dL [facility] GLOBULIN 2.7 1.9 - 3.7 g/dL (calc) [facility] Alb/glob ratio 1.6 1.0 - 2.5 (calc) [facility] Bilirubin, total 0.3 0.2 - 1.2 mg/dL [facility] Alk phos 127 37 - 153 U/L [facility] AST 35 10 - 35 U/L [facility] ALT (SGPT) 68(H) 6 - 29 U/L [facility] Blood specimen (specimen) 09/14/2021 8:16 AM SPECIMEN PREPARATION ASSISTANT 09/14/2021 8:17 AM SPECIMEN PREPARATION ASSISTANT Loraine Fields MD LAB BLOOD ORDERABLES Final Result [facility] [address] [place] [address] * Hepatitis panel, acute (08/27/2018 8:00 AM SPECIMEN PREPARATION ASSISTANT) Hep A IgM Nonreactive Nonreactive [facility] Comment: Interpretive Data If test is reported as GRAYZONE, new sample should be drawn in two weeks for testing. Current interpretive data was last revised on 2016. Testing performed by: [facility], [address] [facility] [address] Hep B core IgM Nonreactive Nonreactive [facility] Comment: Interpretive Data If test is reported as GRAYZONE, new sample should be drawn for testing. Current interpretive data was last revised on 2016. Testing performed by: [facility], [address] [facility]., [address] Hep C Ab Nonreactive Nonreactive [facility] Comment: Interpretive Data Positive and greyzone results should be confirmed by a molecular method. If positive or greyzone, a second separately collected sample should be submitted for Hepatitis C Virus RNA. Detection and Quantitation by Real-Time [employer]icon[employer] Wafers Etcher Stripper-PCR.Current Interpretive data was last revised on 2017. Testing performed by: [facility], [address] [place]., [address] HepBsAg Nonreactive Nonreactive [facility] Comment:Testing performed by : [facility], [address] [facility], [place]., [address] Blood specimen (specimen) Venous blood specimen / Unknown 08/27/2018 8:00 AM SPECIMEN PREPARATION ASSISTANT 08/27/2018 1:30 PM SPECIMEN PREPARATION ASSISTANT Narrative [facility] - 08/28/2018 9:31 AM SPECIMEN PREPARATION ASSISTANT Rafa Mathew MD LAB MICROBIOLOGY - GENE RAL ORDERABLES Edited Result - Final [facility] [id number] [facility]. Department [place] [address] from Last 3 Months or Most Recently Relevant to Health Maintenance Insurance [facility] UHC MEDICARE ADVANTAGE [facility] MEDICARE ADVANTAGE Care Teams Director [employer] Systems Relationship Specialty Start Date End Date Emmy Aguilera MD PCP - General Family Medicine 12/16/22
--- OUTSIDE RECORDS SUMMARY | 2024-11-28 16:31 | XMS_ITS | Clinical Summary ---
Author Organization [facility] Address [address] [place] [address] Care Team Providers Care E Mail System Administrator Name Role Phone Unavailable Primary Care Provider Unavailabl e Source Comments [facility],non-owned Affiliates and Associated Physician Practices is amultiple site organization consisting of ambulatory clinics and hospital sitesin [place], [place], [place] and [place]. This disclosure is being madepursuant to the Care Everywhere program and may not contain all information available regarding this patient. Last updated 18.[facility] Social History Tobacco Use Types Packs/Day Years Used Date Smoking Tobacco: Never Assessed Sex and Gender Information Value Date Recorded Sex Assigned at Not on file Gender Identity Not on file Sexual Orientation Not on file Plan of Treatment Health Maintenance Due Date Last Done Comments BONE DENSITY TESTING 1954 COLOGUARD (AGES 45-75) - COL ON CA SCREENING 1954 COLON MONITORING 1954 COLONOSCOPY - COLON CA SCREENING 1954 CT COLONOGRAPHY - COLON CA SCREENING 1954 Colorectal Cancer Screening 1954 FIT - COLON CA SCREENING 1954 FLEX SIG - COLON CA SCREENING 1954 LIPID TESTING 1954 MAMMOGRAM 1954 HEPATITIS C SCREENING 11/30/1972 DTAP/TDAP/TD VACCINES (1 - Tdap) 1973 PNEUMOCOCCAL VACCINE 50+ (1 of 1 - PCV) 2004 ZOSTER VACCINE (1 of 2) 2004 COVID-19 VACCINE ( - 2023-2 5 season) 2024 INFLUENZA VACCINE (#1) 2024 DEPRESSION SCREENING 09/07/2024 MEDICARE AWV CALENDAR YEAR 2024 Respiratory Syncytial Virus (RSV) Vaccine Pt: or over 60 yrs (1 - 1-dose 75+ series) 2029 HEPATITIS B VACCINE Aged Out No longe r eligible based on patient's age to complete this topic HIB VACCINE Aged Out No longer eligi ble based on patient's age to complete this topic HPV VACCINE Aged Out No longer eligi ble based on patient's age to complete this topic MENINGOCOCCAL (Group B) VACC INE SHARED DECISION-MAKING Aged Out No longer eligibl e based on patient's age to complete this topic MENINGOCOCCAL GROUPS A/C/Y/W VACCINE Aged Out No longer eligible b ased on patient's age to complete this topic
--- OUTSIDE RECORDS SUMMARY | 2024-11-28 16:31 | XMS_ITS | Encounter Summary ---
Author Organization [facility] Address [address] [place] [address] Phone Care Team Providers Care Car Retarder Operator Name Role Phone Héctor Costa MD Primary Care Provider [phone] Emmy Aguilera MD Primary Care Provider + Encounter Details Date Type Department Care Team (Late st Contact Info) Description 03/28/2019 Orders Only [facility] Scanning, Provider Social History Tobacco Use Types Packs/Day Years Used Date Smoking Tobacco: Never Smokeless Tobacco: Never Alcohol Use Standard Drinks/Week Comments Yes 0 (1 standard drink = 0.6 oz pur e alcohol) 1 per year Comments Unknown Sex and Gender Information Value Date Recorded Sex Assigned at Not on file Legal Sex Female 2:48 AM ELECTRONIC CONSOLE DISPLAY OPERATOR Gender Identity Female 05/04/2018 2:21 PM CDT Sexual Orientation Not on file documented as of this encounter Plan of Treatment Not on file documented as of this encounter Procedures Procedure Name Priority Date/Time Associated Diagnosis Comments SCAN - LABS 03/28/2019 documented in this encounter Results * SCAN - LABS (03/28/2019) us Provider Scanning Final Result documented in this encounter Visit Diagnoses Not on filedocumented in this encounter Care Teams Car Retarder Operator Relationship Specialty Start Date End Date Héctor Costa MD [address] [place] [address] PCP - General 10/28/16 12/15/22 Emmy Aguilera MD [address] [place] [address] PCP - General Family Medicine 12/16/22 documented as of this encounter
--- OUTSIDE RECORDS SUMMARY | 2024-11-28 16:31 | XMS_ITS | Encounter Summary ---
Author Organization [facility] Address [address] [place] [address] Phone Care Team Providers Care Leather Dresser Name Role Phone Héctor Costa MD Primary Care Provider [phone] Emmy Aguilera MD Primary Care Provider + Encounter Details Date Type Department Care Team (Late st Contact Info) Description 03/19/2020 Orders Only [facility] Scanning, Provider Social History Tobacco Use Types Packs/Day Years Used Date Smoking Tobacco: Never Smokeless Tobacco: Never Alcohol Use Standard Drinks/Week Comments Yes 0 (1 standard drink = 0.6 oz pur e alcohol) 1 per year Comments Unknown Sex and Gender Information Value Date Recorded Sex Assigned at Not on file Legal Sex Female 2:48 AM ACCOUNT SUPPORT MANAGER Gender Identity Female 05/04/2018 2:21 PM CDT Sexual Orientation Not on file documented as of this encounter Plan of Treatment Not on file documented as of this encounter Procedures Procedure Name Priority Date/Time Associated Diagnosis Comments SCAN - LABS 03/19/2020 documented in this encounter Results * SCAN - LABS (03/19/2020) us Provider Scanning Edited Result - Final documented in this encounter Visit Diagnoses Not on filedocumented in this encounter Care Teams Leather Dresser Relationship Specialty Start Date End Date Héctor Cosat MD [address] [place] [address] PCP - General 10/28/16 12/15/22 Emmy Aguilera MD [address] [place] [address] PCP - General Family Medicine 12/16/22 documented as of this encounter
--- OUTSIDE RECORDS SUMMARY | 2024-11-28 16:31 | XMS_ITS | Encounter Summary ---
Author Organization [facility] Address [address] [place] [address] Phone Care Team Providers Care Sheep Farm Worker Name Role Phone Héctor Costa MD Primary Care Provider [phone] Emmy Aguilera MD Primary Care Provider + Encounter Details Date Type Department Care Team (Late st Contact Info) Description 05/22/2022 Orders Only [facility] Scanning, Provider Social History Tobacco Use Types Packs/Day Years Used Date Smoking Tobacco: Never Smokeless Tobacco: Never Alcohol Use Standard Drinks/Week Comments Yes 0 (1 standard drink = 0.6 oz pur e alcohol) 1 per year AUDIT-C Answer Date Recorded Q1: How often do you have a drink containing alc ohol? Never 03/19/2021 Average Number of Drinks Not on file 021 Frequency of Binge Drinking Not on file 03/07 Comments Unknown Sex and Gender Information Value Date Recorded Sex Assigned at Not on file Legal Sex Female 2:48 AM PANTRY CHEF Gender Identity Female 05/04/2018 2:21 PM CDT Sexual Orientation Not on file documented as of this encounter Plan of Treatment Not on file documented as of this encounter Procedures Procedure Name Priority Date/Time Associated Diagnosis Comments SCAN - RADIOLOGY/IMAGING 05/22/2022 SCAN - LABS 05/22/2022 documented in this encounter Results * SCAN - LABS (05/22/2022) us Provider Scanning Final Result * SCAN - RADIOLOGY/IMAGING (05/22/2022) Anatomical Region Laterality Modality Other us Provider Scanning Final Result documented in this encounter Visit Diagnoses Not on filedocumented in this encounter Care Teams Sheep Farm Worker Relationship Specialty Start Date End Date Héctor Costa MD [address] [place] [address] PCP - General 10/28/16 12/15/22 Emmy Aguilera MD [address] [place] [address] PCP - General Family Medicine 12/16/22 documented as of this encounter
--- OUTSIDE RECORDS SUMMARY | 2024-11-28 16:31 | XMS_ITS | Clinical Summary ---
Author Organization [facility] Address [address] [place] [address] Care Team Providers Care Rn Ccu Name Role Phone Emmy Aguilera MD Primary Care Provider + Allergies Active Allergy Reactions Criticality Noted Date [...] 04/2018. Assessment & Plan (08/10/2018 11:11 AM BARREL CENTERER): The patient reports improved symptoms over last month after starting Sulfasalazine. Still with some persistent joint swelling in hands, but we expect this to improve over time as sulfasalazine takes full effect Recommendations: Continue current Sulfasalzine regimen Follow-up labs and appointment in 3 months Abnormal liver enzymes 08/10/2018 Overview (08/10/2018): Occurring since at least initiation of methotrexate in 2015 Assessment & Plan (08/10/2018 11:08 AM BARREL CENTERER): We will order RUQ U/S and Acute hepatitis Panel given persistence of LFT elevation Encounters Date Type Department Care Team Description 10/11/2024 Telephone [facility] Card[facility] [address] [place] [address] Sebastián Herrera MD 09/20/2024 9:15 AM BARREL CENTERER Office Visit [facility] Cardiology at [address] [place] [address] Sebastián Herrera MD Hypertension associated with diabetes (HCC) (Primary Dx); Hyperlipidemia associated with type 2 diabetes mellitus (HCC); 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; Atypical chest pain from Last 3 Months Surgical History Surgery Date Site/Laterality Comments [place] CHOLECYSTECTOMY Cholecystectomy - (Added by TW Conv) [place] DELIVERY ONLY Section - (Added by TW Conv) [place] LIG/TRNSXJ FLP TUBE ABDL/ VAG APPR UNI/BI Tubal Ligation - (Added by TW Conv) [place] TOTAL ABDOMINAL HYSTERECT W/WO RMVL TUBE OVARY Hysterectomy - (Added by TW Conv) COLONOSCOPY 2014 HYSTERECTOMY 2004 SECTION 1988 TUBAL LIGATION 1993 Medical History Medical History Date Comments Personal history of other en docrine, nutritional and metabolic disease History of diabetes mellitus - (Added by TW Conv) Personal history of diseases of the blood and blood-forming organs and certain disorders involving the immune mechanism History of anemia - (Added b y TW Conv) Personal history of other di seases of the circulatory system History of hypertension - (A dded by TW Conv) Raynaud's syndrome without gangrene Raynauds phenomenon - (Added by TW Conv) GERD (gastroesophageal reflux disease) 2020 Anemia 2014 Diabetes mellitus (HCC) 1993 Cancer (HCC) 2014 Chronic kidney disease 2021 Arthritis 2016 Osteoporosis 2020 Cataract 2019 Autoimmune disease 2015 Family History Medical History Relation Name Comments Cancer Brother 1 Daniel Infantemison Kidney disease Brother 1 Daniel Newman Diabetes Brother 2 Juan C Daniel Diabetes Father Yanick Sanchez Heart disease Father Yanick Sanchez Hypertension Father Yanick Daniel Arthritis Maternal Grandmother Yojana Nice Osteoarthritis Maternal Grandmother Yojana Nice Stroke Maternal Grandmother Yojana Nice Arthritis Mother Anayeli Newman Breast cancer Mother Anayeli Newman Family hist ory of malignant neoplasm of breast - (Added by TW Conv) Cancer Mother Anayeli Newman Diabetes Mother Anayeli Infantemison Heart disease Mother Anayeli Newman Family hist ory of cardiac disorder - (Added by TW Conv) Hypertension Mother Anayeli Newman Vision loss Mother Anayeli Newman Cancer Sister 1 Shahnaz Helms Miscarriages / Stillbirths Sister 1 Shahnaz Helms Thyroid disease Sister 1 Shahnaz Helms Cancer Sister 2 Yojana Daniel Kidney disease Sister 2 Yojana Daniel Miscarriages / Stillbirths Sister 2 Yojana Daniel Kidney disease Sister 3 Tosha Sanchez-Raulito Rheum arthritis Sister 3 Tosha Daniel-Raulito Relation Name Status Comments Brother 1 Daniel Newman Brother 2 Juan C Sanchez Father Yanick Sanchez Maternal Grandmother Yojana Nice Mother Anayeli Newman Sister 1 Shahnaz Orrse Sister 2 Yojana Sanchez Sister 3 Tosha Sanchez-Raulito Social History Tobacco Use Types Packs/Day Years [...] on file Legal Sex Female 2:48 AM BARREL CENTERER Gender Identity Female 05/04/2018 2:21 PM CDT Sexual Orientation Not on file Obstetrics History Last Filed Vital Signs Vital Sign Reading Time Taken Comments Blood Pressure 112/62 09/20/2024 9:10 AM BARREL CENTERER Pulse 94 09/20/2024 9:10 AM BARREL CENTERER Temperature 36.7 C (98 F) 06/14/2024 8:57 AM CDT Respiratory Rate 16 09/20/2024 9:10 AM BARREL CENTERER Oxygen Saturation 98% 06/14/2024 8:57 AM CDT Inhaled Oxygen Concentration - - Weight 69.9 kg (154 lb) 09/20/2024 9:10 AM BARREL CENTERER Height 165.1 cm (5' 5 ) 09/20/2024 9:10 AM BARREL CENTERER Body Mass Index 25.63 09/20/2024 9:10 AM BARREL CENTERER Plan of Treatment Health Maintenance Due Date Last Done Comments Albumin Creatinine Ratio, Urine 1955 Breast Cancer Screening-Mammogram 1955 Colon Cancer Screening-Colonoscopy 1954 Depression Screening 1954 Fall Risk Assessment 1954 Hemoglobin A1C 1954 Osteoporosis Screening-Bone Density Scan 1954 Dilated Eye Exam 1954 Foot Exam 1954 DTaP/Tdap/Td Vaccine (1 - Tdap) 1965 Hepatitis B Screening 1972 Pneumococcal vaccine 65+ (1 of 2 - PCV) 1973 Well Visit 65+ 12/06/2019 eGFR 09/14/2022 09/14/2021, 12/0 11/2020, 07/05/2021, Additional history exists Covid-19 Vaccine (5 - 2023-2 5 season) 2024 12/12/2021, 06/03/2021, 09/10/2020, Additional history exists Influenza Vaccine (#1) 2024 06/27/2021, 2017 Lipid Panel 05/30/2025 05/30/2024, 02/15/2015 Hepatitis C Screening Completed 08/27/2018 Zoster Vaccine Completed 10/18/2021, 08/17/2021 Procedures Procedure Name Priority Date/Time Associated Diagnosis Comments LIPID PANEL Routine 05/30/2024 9:11 AM CDT COMPREHENSIVE METABOLIC PANEL Routine 09/14/2021 8:16 AM BARREL CENTERER Rheumatoid arthritis involving multiple sites with positive rheumatoid factor (HCC) Long-term use of high-risk medication HEPATITIS PANEL, ACUTE Routine 8 8:00 AM BARREL CENTERER Abnormal liver enzymes from Last 3 Months [...] (ABNORMAL) Comprehensive metabolic panel (09/14/2021 8:16 AM BARREL CENTERER) [facility] Glucose 90 65 - 99 mg/dL [facility] Comment: Fasting reference interval BUN 27(H) 7 - 25 mg/dL [facility] Creatinine 1.15(H) 0.50 - 0.99 mg/dL [facility] Comment: For patients >49 years of age, the reference limit for Creatinine is approximately 13% higher for people identified as -Icelandic. eGFR NON-AFR. GEORGIAN 50(L) > OR = 60 mL/min/1. 73m2 [...] [facility] Blood specimen (specimen) 09/14/2021 8:16 AM BARREL CENTERER 09/14/2021 8:17 AM BARREL CENTERER Loraine Fields MD LAB BLOOD ORDERABLES Final Result [facility] [address] [facility] [place] [address] * Hepatitis panel, acute (08/27/2018 8:00 AM BARREL CENTERER) Hep A IgM Nonreactive Nonreactive [facility] Comment: Interpretive Data If test is reported as GRAYZONE, new sample should be drawn in two weeks for testing. Current interpretive data was last revised on 2016. Testing performed by: [facility], [address] [place]., [address] Hep B core IgM Nonreactive Nonreactive [facility] Comment: Interpretive Data If test is reported as GRAYZONE, new sample should be drawn for testing. Current interpretive data was last revised on 2016. Testing performed by: [facility], [address] [place] [address]., [address] Hep C Ab Nonreactive Nonreactive [facility] Comment: Interpretive Data Positive and greyzone results should be confirmed by a molecular method. If positive or greyzone, a second separately collected sample should be submitted for Hepatitis C Virus RNA. Detection and Quantitation by Real-Time Reverse Avionics Systems Engineer-PCR.Current Interpretive data was last revised on 2017. Testing performed by: [facility], [address] [place]., [address] HepBsAg Nonreactive Nonreactive [facility] Comment:Testing performed by : [facility], [address] [place] [address]., [address] Blood specimen (specimen) Venous blood specimen / Unknown 08/27/2018 8:00 AM BARREL CENTERER 08/27/2018 1:30 PM BARREL CENTERER Narrative [facility] - 08/28/2018 9:31 AM BARREL CENTERER Rafa Mathew MD LAB MICROBIOLOGY - GENE RAL ORDERABLES Edited Result - Final [facility] [address] Department [place] [address] from Last 3 Months or Most Recently Relevant to Health Maintenance Insurance [facility] UHC MEDICARE ADVANTAGE [facility] MEDICARE ADVANTAGE Care Teams Rn Ccu Relationship Specialty Start Date End Date Emmy Aguilera MD PCP - General Family Medicine 12/16/22
--- OUTSIDE RECORDS SUMMARY | 2024-11-28 16:31 | XMS_ITS | Encounter Summary ---
Author Organization [facility] Address [address] [place] [address] Phone Care Team Providers Care Clinical Trials Specialist Name Role Phone Héctor Costa MD Primary Care Provider [phone] Emmy Aguilera MD Primary Care Provider + Encounter Details Date Type Department Care Team (Late st Contact Info) Description 02/04/2020 Orders Only [facility] Scanning, Provider Social History Tobacco Use Types Packs/Day Years Used Date Smoking Tobacco: Never Smokeless Tobacco: Never Alcohol Use Standard Drinks/Week Comments Yes 0 (1 standard drink = 0.6 oz pur e alcohol) 1 per year Comments Unknown Sex and Gender Information Value Date Recorded Sex Assigned at Not on file Legal Sex Female 2:48 AM MUCK MINER BLASTING Gender Identity Female 05/04/2018 2:21 PM CDT Sexual Orientation Not on file documented as of this encounter Plan of Treatment Not on file documented as of this encounter Procedures Procedure Name Priority Date/Time Associated Diagnosis Comments SCAN - RADIOLOGY/IMAGING 02/04/2020 documented in this encounter Results * SCAN - RADIOLOGY/IMAGING (02/04/2020) Anatomical Region Laterality Modality Other us Provider Scanning Final Result documented in this encounter Visit Diagnoses Not on filedocumented in this encounter Care Teams Clinical Trials Specialist Relationship Specialty Start Date End Date Héctor Costa MD [address] [place] [id number] PCP - General 10/28/16 12/15/22 Emmy Aguilera MD [address] [place] [id number] PCP - General Family Medicine 12/16/22 documented as of this encounter
--- OUTSIDE RECORDS SUMMARY | 2024-11-28 16:31 | XMS_ITS | Encounter Summary ---
Author Organization [facility] Address [address] [place] [address] Phone Care Team Providers Care Straight Knife Machine Cutter Name Role Phone Héctor Costa MD Primary Care Provider [phone] Emmy Aguilera MD Primary Care Provider + Encounter Details Date Type Department Care Team (Late st Contact Info) Description 01/25/2021 Orders Only [facility] Scanning, Provider Social History Tobacco Use Types Packs/Day Years Used Date Smoking Tobacco: Never Smokeless Tobacco: Never Alcohol Use Standard Drinks/Week Comments Yes 0 (1 standard drink = 0.6 oz pur e alcohol) 1 per year Comments Unknown Sex and Gender Information Value Date Recorded Sex Assigned at Not on file Legal Sex Female 2:48 AM DOLL WIG MAKER Gender Identity Female 05/04/2018 2:21 PM CDT Sexual Orientation Not on file documented as of this encounter Plan of Treatment Not on file documented as of this encounter Procedures Procedure Name Priority Date/Time Associated Diagnosis Comments SCAN - LABS 01/25/2021 documented in this encounter Results * SCAN - LABS (01/25/2021) us Provider Scanning Final Result documented in this encounter Visit Diagnoses Not on filedocumented in this encounter Care Teams Straight Knife Machine Cutter Relationship Specialty Start Date End Date Héctor Costa MD [address] [place] [address] PCP - General 10/28/16 12/15/22 Emmy Aguilera MD [address] [place] [address] PCP - General Family Medicine 12/16/22 documented as of this encounter
== END 2024-11-28 14:19 | disposition home or self-care (01) ==
LOC: ANHIMG 14:19
PROVIDERS: PCP Family Medicine; Visit Provider Family Medicine
DX: Z78.0 Asymptomatic menopausal state (principal); M85.88 Other specified disorders of bone density and structure, other site
CPT/HCPCS: 77080

== ENCOUNTER 2025-03-21 01:12 | Day surgery (SDC) | payer MEDICARE, SELFPAY ==
[2025-03-01 10:27] VITALS: BMI 25.1
--- OUTSIDE RECORDS SUMMARY | 2025-03-21 01:14 | XMS_ITS | Encounter Summary ---
Author Organization [facility] Address [address] [place] [address] Phone Care Team Providers Care Inventory Analyst Name Role Phone Héctor Costa MD Primary Care Provider [phone] Emmy Aguilera MD Primary Care Provider + [...] on file Legal Sex Female 2:48 AM SOUNDSCRIBER MECHANIC Gender Identity Female 05/04/2018 2:21 PM CDT [...] on filedocumented in this encounter Care Teams Inventory Analyst Relationship Specialty Start Date End Date Héctor Costa MD [address] [place] [address] PCP - General 10/28/16 12/15/22 Emmy Aguilera MD [address] [place] [address] PCP - General Family Medicine 12/16/22 documented as of this encounter
--- OUTSIDE RECORDS SUMMARY | 2025-03-21 01:14 | XMS_ITS | Encounter Summary ---
Author Organization [facility] Address [address] [place] [address] Phone Care Team Providers Care Candy Separator Hard Name Role Phone Héctor Costa MD Primary Care Provider [phone] Emmy Aguilera MD Primary Care Provider + [...] on file Legal Sex Female 2:48 AM PRINCIPAL CLERK TYPIST Gender Identity Female 05/04/2018 2:21 PM CDT [...] on filedocumented in this encounter Care Teams Candy Separator Hard Relationship Specialty Start Date End Date Héctor Costa MD [address] [place] [address] PCP - General 10/28/16 12/15/22 Emmy Aguilera MD [address] [place] [address] PCP - General Family Medicine 12/16/22 documented as of this encounter
--- OUTSIDE RECORDS SUMMARY | 2025-03-21 01:14 | XMS_ITS | Clinical Summary ---
Author Organization [facility] Address [address] [place] [address] Phone Care Team Providers Care Senior Engineering Specialist Name Role Phone Emmy Aguilera MD Primary Care Provider [phone] Allergies Active Allergy Reactions Criticality Noted Date Comments Iodinated Contrast Media Unknown 07/14/2022 Methotrexate Unknown 07/14/2022 Medications aspirin (ST DION) 81 MG EC tablet 1 (one) time each day Active Calcium Carb-Cholecalci ferol 600-20 MG-MCG tablet 04/07/2019 Activ e cholecalciferol , vitamin D3, 5,000 Units tablet tablet 1 (one) time each day 02/03/2017 Active ferrous sulfate 325 (65 Fe) MG tablet Take by mouth daily Active folic acid (FOLVITE) 1 MG tablet Take 1 tablet by mouth 1 (one) time each day 11/29/2018 Active glipiZIDE-metFO RMIN (METAGLIP) 5-500 MG per tablet 04/17/2022 Active hydroxychloroqu ine (PLAQUENIL) 200 MG tablet 06/06/2022 Activ e lisinopril (PRINIVIL) 10 MG tablet 05/09/2022 Active metFORMIN XR 500 MG 24 hr tablet 06/11/2022 Active metoprolol succinate XL (TOPROL-XL) 25 MG 24 hr tablet 06/18/2022 Act ciara simvastatin (ZOCOR) 20 MG tablet 05/09/2022 Active [...] oz pur e alcohol) once a year Comments Unknown Sex and Gender Information Value Date Recorded Sex Assigned at Not on file Legal Sex Female 11:12 AM MDT Gender Identity Not on file Sexual Orientation Not on file Last Filed Vital Signs Vital Sign Reading Time Taken Comments Blood Pressure 112/68 07/14/2022 9:05 AM CUSTOMER SUPPORT PROFESSIONAL Pulse - - Temperature 36.1 C (97 F) 07/14/2022 9:05 AM CUSTOMER SUPPORT PROFESSIONAL Respiratory Rate 18 07/14/2022 9:05 AM CUSTOMER SUPPORT PROFESSIONAL Oxygen Saturation - - Inhaled Oxygen Concentration - - Weight 73.5 kg (162 lb) 07/14/2022 9:05 AM CUSTOMER SUPPORT PROFESSIONAL Height 165.1 cm (5' 5) 07/14/2022 9:05 AM CUSTOMER SUPPORT PROFESSIONAL Body Mass Index 26.96 07/14/2022 9:05 AM CUSTOMER SUPPORT PROFESSIONAL Plan of Treatment Health Maintenance Due Date Last Done Comments Pneumococcal PPSV23/PCV13 65 + Years / Low and Medium Risk (1 of 2 - PCV) 2004 Influenza Vaccine (#1) 2025 Insurance [facility] TRAIL[address] [facility] [place] [id number] [employer] MEDICARE Care Teams Senior Engineering Specialist Relationship Specialty Start Date End Date Emmy Aguilera MD [address] [place] [address] PCP - General Family Medicine 07/08/22
--- OUTSIDE RECORDS SUMMARY | 2025-03-21 01:14 | XMS_ITS | Encounter Summary ---
Author Organization [facility] Address [address] [place] [address] Phone Care Team Providers Care Wash Mill Operator Name Role Phone Héctor Costa MD Primary Care Provider [phone] Emmy Aguilera MD Primary Care Provider + [...] on file Legal Sex Female 2:48 AM ACCOUNTING LECTURER Gender Identity Female 05/04/2018 2:21 PM CDT [...] on filedocumented in this encounter Care Teams Wash Mill Operator Relationship Specialty Start Date End Date Héctor Costa MD [address] [place] [address] PCP - General 10/28/16 12/15/22 Emmy Aguilera MD [address] [place] [address] PCP - General Family Medicine 12/16/22 documented as of this encounter
--- OUTSIDE RECORDS SUMMARY | 2025-03-21 01:15 | XMS_ITS | Referral Summary ---
Author Organization [facility] Address [address] [place] [address] Care Team Providers Care Ingot Supervisor Name Role Phone Emmy Aguilera MD Primary Care Provider + Encounters Date Type Department Care Team Description 01/02/2025 Orders Only [facility] [address] [facility] Medicine 5th [place] [address] [place] [id number] Renata Baig CMA Rheumatoid arthritis involving multiple sites with positive rheumatoid factor (HCC) (Primary Dx); Encounter for long-term (current) use of high-risk medication 12/27/2024 8:40 AM CDT Office Visit [facility] [address] [facility] Office Building [address] [place] [address] Loraine Fields MD Rheumatoid arthritis involving multiple sites with positive rheumatoid factor (HCC) (Primary Dx); Encounter for long-term (current) use of high-risk medication from Last 3 Months Allergies Active Allergy [...] multivit,iron,m inerals/lutein (CENTRUM SILVER ULTRA WOMEN'S ORAL) daily 9 Active calcium carbonate-vitam in D3 1,500 mg (600mg elemental) -800 unit per tablet daily 9 Active OneTouch Verio test strips strip 3 Active OneTouch Delica Plus Lancet 33 gauge misc 3 Active latanoprost (XALATAN) 0.005 % ophthalmic solution nightly 3 Active Mounjaro 5 mg/0.5 mL pen injector Inject 0.75 mL (7.5 mg total) under the skin once a week 4 Active cholecalciferol (VITAMIN D-3) 1,000 unit Take 1 tablet/capsule (1,000 Units total) by mouth daily 5 Active lisinopriL (PRINIVIL,ZESTR IL) 5 mg tablet Take 1 tablet (5 mg total) by mouth daily 5 Active Mounjaro 10 mg/0.5 mL pen injector injection 0.5 mL (10 mg total) once a week 5 Active hydroxychloroqu ine (PLAQUENIL) 200 mg tabletIndicatio ns:Rheumatoid arthritis involving multiple sites with positive rheumatoid factor (HCC) TAKE 1 TABLET BY MOUTH EVERY OTHER DAY ALTERNATING WITH 2 TABLETS BY MOUTH EVERY OTHER DAY 120 tablet 3 5 Active Active Problems Problem Noted Date Diagnosed [...] 04/2018. Assessment & Plan (08/10/2018 11:11 AM GROCERY STOCK CLERK): The patient reports improved symptoms over last [...] 2015 Assessment & Plan (08/10/2018 11:08 AM GROCERY STOCK CLERK): We will order RUQ U/S and Acute [...] Frequency of Alcohol Consumption Not on file 12/27/2024 Q2: How many drinks containi ng alcohol do you have on a typical day when you are drinking? Patient does not drink Frequency of Binge Drinking Not on file 12/07 Comments Unknown Sex and Gender Information Value Date Recorded Sex Assigned at Not on file Legal Sex Female 2:48 AM GROCERY STOCK CLERK Gender Identity Female 05/04/2018 2:21 PM CDT Sexual Orientation Not on file Last Filed Vital Signs Vital Sign Reading Time Taken Comments Blood Pressure 101/70 12/27/2024 8:42 AM CDT Pulse 94 12/27/2024 8:42 AM CDT Temperature 36.8 C (98.2 F) 12/27/2024 8:42 AM CDT Respiratory Rate 16 09/20/2024 9:10 AM GROCERY STOCK CLERK Oxygen Saturation 100% 12/27/2024 8:42 AM CDT Inhaled Oxygen Concentration - - Weight 68.5 kg (151 lb) 12/27/2024 8:42 AM CDT Height 165.1 cm (5' 5) 12/27/2024 8:42 AM CDT Body Mass Index 25.13 12/27/2024 8:42 AM CDT Plan of Treatment Not on file Procedures Procedure Name Priority Date/Time Associated Diagnosis Comments LIPID PANEL Routine 05/30/2024 9:11 AM CDT COMPREHENSIVE METABOLIC PANEL Routine 09/14/2021 8:16 AM GROCERY STOCK CLERK Rheumatoid arthritis involving multiple sites with positive rheumatoid factor (HCC) Long-term use of high-risk medication HEPATITIS PANEL, ACUTE Routine 8 8:00 AM GROCERY STOCK CLERK Abnormal liver enzymes from Last 3 Months [...] (ABNORMAL) Comprehensive metabolic panel (09/14/2021 8:16 AM GROCERY STOCK CLERK) Glucose 90 65 - 99 mg/dL [facility] Comment: Fasting reference interval BUN 27(H) 7 - 25 mg/dL [facility] Creatinine 1.15(H) 0.50 - 0.99 mg/dL [facility] Comment: For patients >49 years of age, the reference limit for Creatinine is approximately 13% higher for people identified as -Austrian. eGFR NON-AFR. ITALIAN 50(L) > OR = 60 mL/min/1. 73m2 [...] [place] Blood specimen (specimen) 09/14/2021 8:16 AM GROCERY STOCK CLERK 09/14/2021 8:17 AM GROCERY STOCK CLERK us Loraine Fields MD LAB BLOOD ORDERABLES Final Result [facility] [address] [facility] [place] [address] * Hepatitis panel, acute (08/27/2018 8:00 AM GROCERY STOCK CLERK) Hep A IgM Nonreactive Nonreactive [facility] Comment: Interpretive Data If test is reported as GRAYZONE, new sample should be drawn in two weeks for testing. Current interpretive data was last revised on 2016. Testing performed by: [facility], [address] [facility], [place]., [address] Hep B core IgM Nonreactive Nonreactive [facility] Comment: Interpretive Data If test is reported as GRAYZONE, new sample should be drawn for testing. Current interpretive data was last revised on 2016. Testing performed by: [facility], [address] [place]., [address] Hep C Ab Nonreactive Nonreactive [facility] Comment: Interpretive Data Positive and greyzone results should be confirmed by a molecular method. If positive or greyzone, a second separately collected sample should be submitted for Hepatitis C Virus RNA. Detection and Quantitation by Real-Time Reverse Manager Lpn-PCR.Current Interpretive data was last revised on 2017. Testing performed by: [facility], [address] [place]., [address] HepBsAg Nonreactive Nonreactive [facility] Comment:Testing performed by : [facility], [address] [place]., [address] Blood specimen (specimen) Venous blood specimen / Unknown 08/27/2018 8:00 AM GROCERY STOCK CLERK 08/27/2018 1:30 PM GROCERY STOCK CLERK Narrative [facility] - 08/28/2018 9:31 AM GROCERY STOCK CLERK Rafa Mathew MD LAB MICROBIOLOGY - [facility] ORDERABLES Edited Result - Final [facility] [address] [facility] Department [place] [address] from Last 3 Months or Most Recently Relevant to Health Maintenance Insurance [facility] MEDICARE ADVANTAGE [facility] MEDICARE Address: [address] [address] [place] [address] [facility] MEDICARE ADVANTAGE Care Teams Ingot Supervisor Relationship Specialty Start Date End Date Emmy Aguilera MD PCP - General Family Medicine 12/16/22
--- OUTSIDE RECORDS SUMMARY | 2025-03-21 01:15 | XMS_ITS | Encounter Summary ---
Author Organization [facility] Address [address] [place] [address] Phone Care Team Providers Care Load Dropper Name Role Phone Héctor Costa MD Primary Care Provider [phone] Emmy Aguilera MD Primary Care Provider + [...] on file Legal Sex Female 2:48 AM COLD SAW OPERATOR Gender Identity Female 05/04/2018 2:21 PM [...] on filedocumented in this encounter Care Teams Load Dropper Relationship Specialty Start Date End Date Héctor Costa MD [address] [place] [address] PCP - General 10/28/16 12/15/22 Emmy Aguilera MD [address] [place] [address] PCP - General Family Medicine 12/16/22 documented as of this encounter
--- OUTSIDE RECORDS SUMMARY | 2025-03-21 01:15 | XMS_ITS | Encounter Summary ---
Author Organization [facility] Address [address] [place] [address] Phone Care Team Providers Care Maintenance Machinist Name Role Phone Emmy Aguilera MD Primary [...] on file Legal Sex Female 2:48 AM NURSE BEHAVIORAL HEALTH CARE Gender Identity Female 05/04/2018 2:21 PM CDT [...] on filedocumented in this encounter Care Teams Maintenance Machinist Relationship Specialty Start Date End Date Emmy Aguilera MD PCP - General Family Medicine 12/16/22 documented as of this encounter
--- OUTSIDE RECORDS SUMMARY | 2025-03-21 01:15 | XMS_ITS | Clinical Summary ---
Author Organization [facility] Address [address] [place] [address] Care Team Providers Care Wine Bottle Inspector Name Role Phone Emmy Aguilera MD Primary [...] 04/2018. Assessment & Plan (08/10/2018 11:11 AM CIGAR SORTER): The patient reports improved symptoms over last [...] 2015 Assessment & Plan (08/10/2018 11:08 AM CIGAR SORTER): We will order RUQ U/S and Acute hepatitis Panel given persistence of LFT elevation Encounters Date Type Department Care Team Description 01/02/2025 Orders Only [facility] [address] [facility] 5th [place] [address] [place] [address] Renata Baig CMA Rheumatoid arthritis involving multiple sites with positive rheumatoid factor (HCC) (Primary Dx); Encounter for long-term (current) use of high-risk medication 12/27/2024 8:40 AM CDT Office Visit [facility] [address] [facility] Medical Office Building [address] [place] [address] Loraine Fields MD Rheumatoid arthritis involving multiple sites with positive rheumatoid factor (HCC) (Primary Dx); Encounter for long-term (current) use of high-risk medication from Last 3 Months Surgical History Surgery Date Site/Laterality Comments CA CHOLECYSTECTOMY Cholecystectomy - (Added by TW Conv) CA DELIVERY ONLY Section - (Added by TW Conv) CA LIG/TRNSXJ FLP TUBE ABDL/VAG APPR UNI/BI Tubal Ligation - (Added by TW Conv) CA TOTAL ABDOMINAL HYSTERECT W/WO RMVL TUBE OVARY Hysterectomy - (Added by TW Conv) COLONOSCOPY 2015 HYSTERECTOMY 2005 SECTION 1989 TUBAL LIGATION 1994 CATARACT EXTRACTION 10/08/2024 - 11/04/2024 Bilateral Medical History Medical History Date Comments Personal [...] Conv) GERD (gastroesophageal reflux disease) 2020 Anemia 2015 Diabetes mellitus (HCC) 1994 Cancer (HCC) 2015 Chronic kidney disease 2021 Arthritis 2016 Osteoporosis 2020 Cataract 2020 Autoimmune disease 2015 Family History Medical History Relation Name Comments Cancer Brother 1 Daniel Infantemison Kidney disease Brother 1 Daniel Newman Diabetes Brother 2 Juan Cbee Sanchez Diabetes Father Yanick Daniel Heart disease Father Yanick Sanchez Hypertension Father Yanick Sanchez Arthritis Maternal Grandmother Yojana Nice Osteoarthritis Maternal Grandmother Yojana Nice Stroke Maternal Grandmother Yojana Nice Arthritis Mother Anayeli Newman Breast cancer Mother Anayeli Newman Family hist ory of malignant neoplasm of breast - (Added by TW Conv) Cancer Mother Anayeli Newman Diabetes Mother Anayeli Newman Heart disease Mother Anayeli Newman Family hist [...] Yojana Daniel Kidney disease Sister 3 Tosha Daniel-Raulito Rheum arthritis Sister 3 Tosha Daniel-Raulito Relation Name Status Comments Brother 1 Daniel Newman Brother 2 Juan C Daniel Father Yanick Sanchez Maternal Grandmother Yojana Nice Mother Anayeli Newman Sister 1 Shahnaz Helms Sister 2 Yojana Daniel Sister 3 Tosha Daniel-Raulito Social History Tobacco Use Types Packs/Day Years [...] on file Legal Sex Female 2:48 AM CIGAR SORTER Gender Identity Female 05/04/2018 2:21 PM CDT Sexual Orientation Not on file Obstetrics History Last Filed Vital Signs Vital Sign Reading Time Taken Comments Blood Pressure 101/70 12/27/2024 8:42 AM CDT Pulse 94 12/27/2024 8:42 AM CDT Temperature 36.8 C (98.2 F) 12/27/2024 8:42 AM CDT Respiratory Rate 16 09/20/2024 9:10 AM CIGAR SORTER Oxygen Saturation 100% 12/27/2024 8:42 AM CDT Inhaled Oxygen Concentration - - Weight 68.5 kg (151 lb) 12/27/2024 8:42 AM CDT Height 165.1 cm (5' 5) 12/27/2024 8:42 AM CDT Body Mass Index 25.13 12/27/2024 8:42 AM CDT Plan of Treatment Health Maintenance Due Date [...] Well Visit 65+ 12/06/2019 eGFR 09/14/2022 09/14/2021, 1211/2020, 07/05/2021, Additional history exists Covid-19 Vaccine ( - 2023-2 5 season) 2024 12/12/2021, 06/03/2021, 09/10/2020, Additional history exists Influenza Vaccine (Season Ended) 2025 06/27/20 21, 06/14/2018 Lipid Panel 05/30/2025 05/30/2024, 02/15/2015 Hepatitis C Screening Completed 08/27/2018 Zoster Vaccine Completed 10/18/2021, 08/17/2021 Procedures Procedure Name Priority Date/Time Associated Diagnosis Comments LIPID PANEL Routine 05/30/2024 9:11 AM CDT COMPREHENSIVE METABOLIC PANEL Routine 09/14/2021 8:16 AM CIGAR SORTER Rheumatoid arthritis involving multiple sites with positive rheumatoid factor (HCC) Long-term use of high-risk medication HEPATITIS PANEL, ACUTE Routine 8 8:00 AM CIGAR SORTER Abnormal liver enzymes from Last 3 Months [...] (ABNORMAL) Comprehensive metabolic panel (09/14/2021 8:16 AM CIGAR SORTER) Glucose 90 65 - 99 mg/dL [facility] Comment: Fasting reference interval BUN 27(H) 7 - 25 mg/dL [facility] Creatinine 1.15(H) 0.50 - 0.99 mg/dL [facility] Comment: For patients >49 years of age, the reference limit for Creatinine is approximately 13% higher for people identified as -Maldivian. eGFR NON-AFR. NAURUAN 50(L) > OR = 60 mL/min/1. 73m2 [...] [place] Blood specimen (specimen) 09/14/2021 8:16 AM CIGAR SORTER 09/14/2021 8:17 AM CIGAR SORTER us Loraine Fields MD LAB BLOOD ORDERABLES Final Result [facility] [address] [address] * Hepatitis panel, acute (08/27/2018 8:00 AM CIGAR SORTER) Hep A IgM Nonreactive Nonreactive [facility] Comment: Interpretive Data If test is reported as GRAYZONE, new sample should be drawn in two weeks for testing. Current interpretive data was last revised on 2016. Testing performed by: [facility], [address] [place] [address]., [address] Hep B core IgM Nonreactive Nonreactive [facility] Comment: Interpretive Data If test is reported as GRAYZONE, new sample should be drawn for testing. Current interpretive data was last revised on 2016. Testing performed by: [facility], [address] [place]., [address] Hep C Ab Nonreactive Nonreactive [facility] Comment: Interpretive Data Positive and greyzone results should be confirmed by a molecular method. If positive or greyzone, a second separately collected sample should be submitted for Hepatitis C Virus RNA. Detection and Quantitation by Real-Time Reverse Cigar Patcher-PCR.Current Interpretive data was last revised on 2017. Testing performed by: [facility], [address] [place]., [address] HepBsAg Nonreactive Nonreactive [facility] Comment:Testing performed by : [facility], [address] [facility], [place]., [address] Blood specimen (specimen) Venous blood specimen / Unknown 08/27/2018 8:00 AM CIGAR SORTER 08/27/2018 1:30 PM CIGAR SORTER Narrative [facility] - 08/28/2018 9:31 AM CIGAR SORTER Rafa Mathew MD LAB MICROBIOLOGY - GENE [facility] ORDERABLES Edited Result - Final [facility] [address] [facility] Department [place] [address] from Last 3 Months or Most Recently Relevant to Health Maintenance Insurance [facility]ICARE [facility]IC[facility] Address: [address] [address] [place] [address] UHC MEDICARE ADVANTAGE [facility] MEDICARE Address: [facility] [address] [place] [address] Care Teams Wine Bottle Inspector Relationship Specialty Start Date End Date Emmy Aguilera MD PCP - General Family Medicine 12/16/22
--- OUTSIDE RECORDS SUMMARY | 2025-03-21 01:15 | XMS_ITS | Encounter Summary ---
Author Organization [facility] Address [address] [place] [address] Phone Care Team Providers Care Basting Marker Name Role Phone Emmy Aguilera MD Primary Care Provider + Encounter Details Date Type Department Care Team (Late st Contact Info) Description 12/04/2023 Orders Only [facility] Scanning, Provider Social History Tobacco [...] on file Legal Sex Female 2:[address] JUST[address] Gender Identity Female 05/04/2018 2:21 PM CDT [...] on filedocumented in this encounter Care Teams Basting Marker Relationship Specialty Start Date End Date Emmy Aguilera MD PCP - General Family Medicine 12/16/22 documented as of this encounter
--- OUTSIDE RECORDS SUMMARY | 2025-03-21 01:15 | XMS_ITS | Encounter Summary ---
Author Organization [facility] Address [address] [place] [address] Phone Care Team Providers Care Bottle Cleaner Name Role Phone Héctor Costa MD Primary Care Provider [phone] Emmy Aguilera MD Primary Care Provider + [...] on file Legal Sex Female 2:48 AM PACKAGE LINE RELIEF OPERATOR Gender Identity Female 05/04/2018 2:21 PM [...] on filedocumented in this encounter Care Teams Bottle Cleaner Relationship Specialty Start Date End Date Héctor Costa MD [address] [place] [address] PCP - General 10/28/16 12/15/22 Emmy Aguilera MD [address] [place] [address] PCP - General Family Medicine 12/16/22 documented as of this encounter
--- OUTSIDE RECORDS SUMMARY | 2025-03-21 01:15 | XMS_ITS | Clinical Summary ---
Author Organization [facility] [employer] Address [address] [place] [address] Care Team Providers Care Brewery Worker Name Role Phone Unavailable Primary Care Provider Unavailabl e Source Comments [facility],non-owned Affiliates and Associated Physician Practices is amultiple site organization consisting of ambulatory clinics and hospital sitesin [place], [place], [place] and [place]. This disclosure is being madepursuant to the Care Everywhere program and may not contain all information available regarding this patient. Last updated 18.[facility] [employer] Social History Tobacco Use Types Packs/Day Years Used Date Smoking Tobacco: Never Assessed Comments Unknown Sex and Gender Information Value Date Recorded Sex Assigned at Not on file Legal Sex Female 6:28 AM DEPENDENCY CASE MANAGER Gender Identity Not on file Sexual Orientation [...] VACCINE ( - 2023-2 5 season) 2024 DEPRESSION SCREENING 09/07/2024 INFLUENZA VACCINE (#1) 2025 Respiratory Syncytial Virus (RSV) Vaccine Pt: or [...] on patient's age to complete this topic Insurance MANAGED MEDICARE ADV
[2025-03-21 08:46] VITALS: BP 109/70; PULSE 95; RESP 14; TEMP 36.7; O2SAT 94; BMI 25.3
--- NOTE | 2025-03-21 09:06 | P.PNAN_ITS ---
Anes - Initial Pre Proc Eval Procedure: Operation Date: 03/21/25 10:00 Proposed Procedures p Screening Colonoscopy - Gary Roa MD Date/Time: 03/21/25 09:06 Surgeon: Gary Roa MD Pre Op Diagnosis: screening Patient Data Age: 69 Gender: F Height: 1.65 m Weight: 69 kg Last Vital Signs Temp 98.0 F 03/21/25 08:46 Pulse 95 03/21/25 08:46 Resp 14 03/21/25 08:46 BP 109/70 03/21/25 08:46 Pulse Ox 94 03/21/25 08:46 O2 Del Method Room Air 03/21/25 08:46 Allergies Allergy/AdvReac Type Severity Reaction Status Date / Time methotrexate Allergy Unknown Unknown Verified 03/21/25 08:52 Iodinated Contrast Media AdvReac Intermediate other Verified 03/21/25 08:52 Home Medications ?Medication ?Instructions ?Recorded ?Confirmed ?Type aspirin 81 mg tablet,delayed 81 mg PO DAILY 10/03/19 03/21/25 History release calcium carbonate (Calcium 600) 600 mg PO BID 10/03/19 03/21/25 History folic acid 1 mg tablet 1 mg PO DAILY 10/03/19 03/21/25 History multivitamin 1 tablet PO DAILY 10/03/19 03/21/25 History hydroxychloroquine 200 mg tablet 200 mg PO BID 02/19/22 03/21/25 History (Plaquenil) blood-glucose meter (OneTouch #1 ea 08/25/22 12/15/24 Rx Verio Reflect Meter) latanoprost 0.005 % eye drops 1 drp EACH EYE QPM 04/14/23 03/21/25 History lancets 33 gauge #200 ea 04/20/23 12/15/24 Rx blood sugar diagnostic (OneTouch #200 ea 07/26/24 12/15/24 Rx Verio test strips) tirzepatide 10 mg/0.5 mL 10 mg (0.5 mL) subcut WEEKLY #2 mL 09/27/24 03/21/25 Rx subcutaneous pen injector simvastatin 20 mg tablet See Rx Instructions .Route 10/17/24 03/21/25 Rx .COMPLEX #100 tabs lisinopril 5 mg tablet 5 mg PO DAILY #90 tabs 12/13/24 03/21/25 Rx ascorbic acid (vitamin C) 500 mg 500 mg PO DAILY 03/01/25 03/21/25 History tablet (Vitamin C) ferrous sulfate 325 mg (65 mg 325 mg PO DAILY 03/01/25 03/21/25 History iron) tablet,delayed release Patient hx anesthesia problems: none Family hx anesthesia problems: none Results Review: All pre-operative results and documents have been reviewed as part of the pre- operative evaluation. [facility] Past Medical History Medical History Mass in neck US 12.:Ultrasound-guided fine needle aspiration of contents of a 2.4 cm cyst in left parotid gland. No solid portion was identified for biopsy. Non neoplastic, compatible wiht benign cyst Peripheral neuropathy GERD (gastroesophageal reflux disease) Renal cell carcinoma surgery 2014 Mixed hyperlipidemia Benign essential HTN Surgical History Surgical History H/O right cataract extraction H/O left cataract extraction 11.04.24 H/O left nephrectomy 2014 renal cell carcinoma Hx of cholecystectomy Hx of ovarian cystectomy History of 2 sections History of cardiac cath H/O: hysterectomy History of kidney removal Family History Family History Father Diabetes mellitus, Onset Age: 70 Family history of cardiovascular disease, Onset Age: 70 Family history of coronary artery disease, Onset Age: 70 Mother Diabetes mellitus Family history of malignant neoplasm of breast in first degree relative, Onset Age: 70 Other Family history of arthritis Family history of heart disease in male family member before age 55 Hypertension Social History Social History Smoking status: Never smoker Alcohol intake: never Substance use: never Substance use type: does not use Do You Feel Safe in your Home?: Yes Lack of Transportation: No Lack of Food: Never True Current Housing: I Have Housing Concerned About Future Housing: No Difficulty Paying Gas/Electric Bills: No Difficulty Paying for Meds: No Currently Unemployed: No Education: Associate Degree Difficulty w/ Childcare or Family Care: No Living arrangements: with family Gender identity (if verbalized by the patient): Female Sexual Orientation (if Verbalized by the Patient): Straight or Heterosexual Spiritual care concerns: No Anes - Eval Final PreProcedure Day of Procedure 03/21/25 09:06 Patient weight: overweight Lungs: normal air movement Airway: Mallampati scale class II Neurological: alert and oriented Last oral intake: >/= 8 hours ASA classification: III Emergent: no Anesthetic plan: proceed Anesthesia type and monitoring: general GIVS and standard monitoring Results Review: All pre-operative results and documents have been reviewed as part of the pre-operative evaluation. Hyperlipidemia, DM, hx renal cell ca s/p nephrectomy 2014 GFR 47. Active at [employer] w workouts 5 x weekly, no cp or sob. . Informed Consent: The patient's anesthetic plan and its attendant risks and benefits were discussed with the patient/family/POA. Questions were solicited and answers provided to the satisfaction of the patient/family/POA.
[2025-03-21] MEDS: SODIUM CHLORIDE 0.9% IV 500 ML 10 ML IV CONT (09:20)
--- NOTE | 2025-03-21 09:23 | PM.HPGS ---
History of Present Illness History of Present Illness Consent: Risks, benefits, and alternatives have been discussed and questions answered. Patient agrees to proceed with procedure. Chief complaint: screening Narrative: Tosha Cabezas is a 69 year old female here for screening colonoscopy, last one 10 years ago Review of Systems Review of Systems: All systems reviewed & are unremarkable except as noted in HPI and below PMFSH Past Medical History Medical History (Updated 03/21/25 @ 09:24 by Gary Roa MD) Colon cancer screening Mass in neck US 08.19.23:Ultrasound-guided fine needle aspiration of contents of a 2.4 cm cyst in left parotid gland. No solid portion was identified for biopsy. Non neoplastic, compatible wiht benign cyst Peripheral neuropathy GERD (gastroesophageal reflux disease) Renal cell carcinoma surgery 2014 Mixed hyperlipidemia Benign essential HTN Surgical History Surgical History H/O right cataract extraction H/O left cataract extraction 11.04.24 H/O left nephrectomy 2014 renal cell carcinoma Hx of cholecystectomy Hx of ovarian cystectomy History of 2 sections History of cardiac cath H/O: hysterectomy History of kidney removal Family History Family History Father Diabetes mellitus, Onset Age: 70 Family history of cardiovascular disease, Onset Age: 70 Family history of coronary artery disease, Onset Age: 70 Mother Diabetes mellitus Family history of malignant neoplasm of breast in first degree relative, Onset Age: 70 Other Family history of arthritis Family history of heart disease in male family member before age 55 Hypertension Social History Social History Smoking status: Never smoker Alcohol intake: never Substance use: never Substance use type: does not use Do You Feel Safe in your Home?: Yes Lack of Transportation: No Lack of Food: Never True Current Housing: I Have Housing Concerned About Future Housing: No Difficulty Paying Gas/Electric Bills: No Difficulty Paying for Meds: No Currently Unemployed: No Education: Associate Degree Difficulty w/ Childcare or Family Care: No Living arrangements: with family Gender identity (if verbalized by the patient): Female Sexual Orientation (if Verbalized by the Patient): Straight or Heterosexual Spiritual care concerns: No Meds Home Medications and Allergies Home Medications ?Medication ?Instructions ?Recorded ?Confirmed ?Type aspirin 81 mg tablet,delayed 81 mg PO DAILY 10/03/19 03/21/25 History release calcium carbonate (Calcium 600) 600 mg PO BID 10/03/19 03/21/25 History folic acid 1 mg tablet 1 mg PO DAILY 10/03/19 03/21/25 History multivitamin 1 tablet PO DAILY 10/03/19 03/21/25 History hydroxychloroquine 200 mg tablet 200 mg PO BID 02/19/22 03/21/25 History (Plaquenil) blood-glucose meter (OneTouch #1 ea 08/25/22 12/15/24 Rx Verio Reflect Meter) latanoprost 0.005 % eye drops 1 drp EACH EYE QPM 04/14/23 03/21/25 History lancets 33 gauge #200 ea 04/20/23 12/15/24 Rx blood sugar diagnostic (OneTouch #200 ea 07/26/24 12/15/24 Rx Verio test strips) tirzepatide 10 mg/0.5 mL 10 mg (0.5 mL) subcut WEEKLY #2 mL 09/27/24 03/21/25 Rx subcutaneous pen injector simvastatin 20 mg tablet See Rx Instructions .Route 10/17/24 03/21/25 Rx .COMPLEX #100 tabs lisinopril 5 mg tablet 5 mg PO DAILY #90 tabs 12/13/24 03/21/25 Rx ascorbic acid (vitamin C) 500 mg 500 mg PO DAILY 03/01/25 03/21/25 History tablet (Vitamin C) ferrous sulfate 325 mg (65 mg 325 mg PO DAILY 03/01/25 03/21/25 History iron) tablet,delayed release Allergies Allergy/AdvReac Type Severity Reaction Status Date / Time methotrexate Allergy Unknown Unknown Verified 03/21/25 08:52 Iodinated Contrast Media AdvReac Intermediate other Verified 03/21/25 08:52 Vital Signs Vital Signs - 24 hr 03/21/25 08:46 Temperature 98.0 F Pulse Rate 95 Respiratory Rate 14 Blood Pressure 109/70 Pulse Oximetry 94 Oxygen Delivery Room Air Exam Const: General: comfortable and no acute distress HENMT: Face/Nose/Sinus: Normal nares present Eyes: General: appearance normal, both eyes and all related structures Neck: Neck: no JVD Resp: Auscultation: clear to auscultation bilaterally Cardio: Rate: regular rate Rhythm: regular rhythm GI: Inspection: non-distended GI Palp: Yes Soft to palpation Skin: General skin exam: normal color Neuro: Speech: normal speech Extrem: General: normal to inspection Psych: Mental Status: mental status grossly normal Assessment and Plan Assessment and plan (1) Colon cancer screening: Code(s): Z12.11 - Encounter for screening for malignant neoplasm of colon Status: Acute Assessment and Plan: colonoscopy
--- NOTE | 2025-03-21 09:38 | S_PTH ---
PATIENT: Tosha Gautam LOC: [facility] Pearson#:[id number] AGE/SX: 69/F ROOM: RE03/21/[address]: Gary Roa MD : 1955 BED: DIS: 03/21/2025 SPEC #: [id number] RECD: 03/21/25 10:25 STATUS: BERNARDO GREGORY #: [id number] BEBO: 03/21/25 09:[address]: Gary Roa DEPT: [facility] Surgical RECD BY: Debi Josue ENTERED: 03/21/25 10:26 SP TYPE: Surgical OTHR DR: Emmy Aguilera MD Tissues: A - Colon Polypectomy Procedures: Hematoxylin and Eosin Stain Gross and Microscopic Level 4
[2025-03-21 09:43] VITALS: BP 96/59; PULSE 78; RESP 22; O2SAT 100
[2025-03-21 09:53] VITALS: BP 100/97; PULSE 82; RESP 20; O2SAT 100
[2025-03-21 10:03] VITALS: BP 100/68; PULSE 78; RESP 18; O2SAT 100
== END 2025-03-21 10:12 | disposition home or self-care (01) ==
PROVIDERS: PCP Family Medicine; Referring Provider Student in an Organized Health Care Education/Training Program; Visit Provider Internal Medicine Gastroenterology
PROC: 0DJD8ZZ Inspection of Lower Intestinal Tract, Via Natural or Artificial Opening Endoscopic (ICD-10-PCS; CPT 45378; principal; 2025-03-21 10:00)
DX: Z12.11 Encounter for screening for malignant neoplasm of colon (principal); D12.2 Benign neoplasm of ascending colon; K57.30 Diverticulosis of large intestine without perforation or abscess without bleeding; E78.2 Mixed hyperlipidemia; I10 Essential (primary) hypertension; K21.9 Gastro-esophageal reflux disease without esophagitis; E11.9 Type 2 diabetes mellitus without complications; G62.9 Polyneuropathy, unspecified; Z79.82 Long term (current) use of aspirin; Z79.85 Long-term (current) use of injectable non-insulin antidiabetic drugs; Z98.890 Other specified postprocedural states; Z90.49 Acquired absence of other specified parts of digestive tract; Z98.61 Coronary angioplasty status; Z90.5 Acquired absence of kidney; Z85.528 Personal history of other malignant neoplasm of kidney; Z80.3 Family history of malignant neoplasm of breast; Z82.49 Family history of ischemic heart disease and other diseases of the circulatory system
CPT/HCPCS: 45380; 82948; 88305; J2003; J2704; J7040

== ENCOUNTER 2025-06-12 07:30 | Outpatient (CLI) | payer MEDICARE, SELFPAY ==
--- NOTE | ~2025-06-12 | MM_ITS ---
EXAMINATION: MM screening bimal BI w dale HISTORY: Screening TECHNIQUE: Craniocaudal and mediolateral oblique 3-D tomosynthesis images were obtained and synthetic 2-D images were generated. CAD analysis was submitted and interpreted. COMPARISON: Comparison to multiple prior studies sequentially, with oldest reviewed study dated , 02/04/2020 BREAST PARENCHYMAL COMPOSITION: The breasts are heterogeneously dense, which may obscure small masses. FINDINGS: There is no evidence of suspicious mass, calcification, or architectural distortion to suggest malignancy in either breast. IMPRESSION: 1. No mammographic evidence of malignancy. 2. Recommend routine screening mammography in one year. BI-RADS Category 1: Negative Reviewed, dictated and finalized at location B.
--- OUTSIDE RECORDS SUMMARY | 2025-06-12 07:33 | XMS_ITS | Clinical Summary ---
Author Organization [facility] [employer] Address [address] [place] [address] Care Team Providers Care Installation Drafter Name Role Phone Unavailable Primary Care Provider Unavailabl e Source Comments [facility],non-owned Affiliates and Associated Physician Practices is amultiple site organization consisting of ambulatory clinics and hospital sitesin [place], [place], [place] and [place]. This disclosure is being madepursuant to the Care Everywhere program and may not contain all information available regarding this patient. Last updated 18.[facility] [employer] Social History Tobacco Use Types Packs/Day Years Used Date Smoking Tobacco: Never Assessed Comments Unknown Sex and Gender Information Value Date Recorded Sex Assigned at Not on file Legal Sex Female 6:28 AM CASINO DEALER Gender Identity Not on file Sexual Orientation [...] 2004 ZOSTER VACCINE (1 of 2) 2004 DEPRESSION SCREENING 09/07/2024 MEDICARE AWV CALENDAR YEAR 2024 COVID-19 VACCINE (1 - 2023-2 5 season) 2025 INFLUENZA VACCINE (#1) 2025 Respiratory Syncytial Virus [...] patient's age to complete this topic Insurance [facility] [place] [address] [facility] [employer] SELF PAY NO INSURANCE Member Subscriber Plan / Payer (Ef fective for All Dates) Name:Char Santa Member ID:Not on file Relation to Subscriber:Not on file Name:CHAR SANTA Subscriber ID:Not on file (Home) Address: [address] [place] [id number] Payer ID:Not on file Group ID:Not on file Type:Self Pay Address: [place], [place]
--- OUTSIDE RECORDS SUMMARY | 2025-06-12 07:33 | XMS_ITS | Clinical Summary ---
Author Organization [facility] Address [address] [place] [address] Phone Care Team Providers Care Tariff Compiling Clerk Name Role Phone Emmy Aguilera MD Primary Care Provider [phone] Allergies Active Allergy Reactions Criticality Noted Date [...] Comments Blood Pressure 112/68 07/14/2022 9:05 AM LICENSING REGISTRATION EXAMINER Pulse - - Temperature 36.1 C (97 F) 07/14/2022 9:05 AM LICENSING REGISTRATION EXAMINER Respiratory Rate 18 07/14/2022 9:05 AM LICENSING REGISTRATION EXAMINER Oxygen Saturation - - Inhaled Oxygen Concentration - - Weight 73.5 kg (162 lb) 07/14/2022 9:05 AM LICENSING REGISTRATION EXAMINER Height 165.1 cm (5' 5) 07/14/2022 9:05 AM LICENSING REGISTRATION EXAMINER Body Mass Index 26.96 07/14/2022 9:05 AM LICENSING REGISTRATION EXAMINER Plan of Treatment Health Maintenance Due Date Last Done Comments Pneumococcal PPSV23/PCV13 65 + Years / Low and Medium Risk (1 of 2 - PCV) 2004 Influenza Vaccine (#1) 2025 Insurance [place] [address] Care Teams Tariff Compiling Clerk Relationship Specialty Start Date End Date Emmy Aguilera MD [address] [place] [address] PCP - General Family Medicine 07/08/22
--- OUTSIDE RECORDS SUMMARY | 2025-06-12 07:33 | XMS_ITS | Encounter Summary ---
Author Organization [facility] Address [address] [place] [address] Phone Care Team Providers Care Glue Size Machine Operator Name Role Phone Héctor Costa MD Primary Care Provider [phone] Emmy Aguilera MD Primary Care Provider + [...] on file Legal Sex Female 2:48 AM MEMBERSHIP CORRESPONDENT Gender Identity Female 05/04/2018 2:21 PM CDT [...] on filedocumented in this encounter Care Teams Glue Size Machine Operator Relationship Specialty Start Date End Date Héctor Costa MD [address] [place] [address] PCP - General 10/28/16 12/15/22 Emmy Aguilera MD [address] [place] [address] PCP - General Family Medicine 12/16/22 documented as of this encounter
--- OUTSIDE RECORDS SUMMARY | 2025-06-12 07:33 | XMS_ITS | Encounter Summary ---
Author Organization [facility] Address [address] [place] [address] Phone Care Team Providers Care Street Worker Name Role Phone Héctor Costa MD Primary Care Provider [phone] Emmy Aguilera MD Primary Care Provider + [...] on file Legal Sex Female 2:48 AM VICE SQUAD POLICE OFFICER Gender Identity Female 05/04/2018 2:21 PM CDT [...] on filedocumented in this encounter Care Teams Street Worker Relationship Specialty Start Date End Date Héctor Costa MD [address] [place] [address] PCP - General 10/28/16 12/15/22 Emmy Aguilera MD [address] [place] [address] PCP - General Family Medicine 12/16/22 documented as of this encounter
--- OUTSIDE RECORDS SUMMARY | 2025-06-12 07:33 | XMS_ITS | Encounter Summary ---
Author Organization [facility] Address [address] [place] [address] Phone Care Team Providers Care Psychiatric Lpn Name Role Phone Héctor Costa MD Primary Care Provider [phone] Emmy Aguilera MD Primary Care Provider + [...] on file Legal Sex Female 2:48 AM CYLINDER PRESS OPERATOR HELPER Gender Identity Female 05/04/2018 2:21 PM CDT [...] on filedocumented in this encounter Care Teams Psychiatric Lpn Relationship Specialty Start Date End Date Héctor Costa MD [address] [place] [address] PCP - General 10/28/16 12/15/22 Emmy Aguilera MD [address] [place] [address] PCP - General Family Medicine 12/16/22 documented as of this encounter
--- OUTSIDE RECORDS SUMMARY | 2025-06-12 07:33 | XMS_ITS | Encounter Summary ---
Author Organization [facility] Address [address] [place] [address] Phone Care Team Providers Care Graphic Art Sales Representative Name Role Phone Héctor Costa MD Primary Care Provider [phone] Emmy Aguilera MD Primary Care Provider + [...] on file Legal Sex Female 2:48 AM DIE STORAGE WORKER Gender Identity Female 05/04/2018 2:21 PM CDT [...] on filedocumented in this encounter Care Teams Graphic Art Sales Representative Relationship Specialty Start Date End Date Héctor Costa MD [address] [place] [address] PCP - General 10/28/16 12/15/22 Emmy Aguilera MD [address] [place] [address] PCP - General Family Medicine 12/16/22 documented as of this encounter
--- OUTSIDE RECORDS SUMMARY | 2025-06-12 07:33 | XMS_ITS | Encounter Summary ---
Author Organization [facility] Address [address] [place] [address] Phone Care Team Providers Care Mineralogy Teacher Name Role Phone Emmy Aguilera MD Primary [...] on file Legal Sex Female 2:48 AM NYLON MENDER Gender Identity Female 05/04/2018 2:21 PM CDT [...] on filedocumented in this encounter Care Teams Mineralogy Teacher Relationship Specialty Start Date End Date Emmy Aguilera MD PCP - General Family Medicine 12/16/22 documented as of this encounter
--- OUTSIDE RECORDS SUMMARY | 2025-06-12 07:33 | XMS_ITS | Encounter Summary ---
Author Organization [facility] Address [address] [place] [address] Phone Care Team Providers Care Quality Head Name Role Phone Emmy Aguilera MD Primary [...] on file Legal Sex Female 2:48 AM SUPPORT SERVICES TECH Gender Identity Female 05/04/2018 2:21 PM CDT [...] on filedocumented in this encounter Care Teams Quality Head Relationship Specialty Start Date End Date Emmy Aguilera MD PCP - General Family Medicine 12/16/22 documented as of this encounter
--- OUTSIDE RECORDS SUMMARY | 2025-06-12 07:33 | XMS_ITS | Encounter Summary ---
Author Organization [facility] Address [address] [place] [address] Phone Care Team Providers Care Ophthalmology Technician Name Role Phone Héctor Costa MD Primary Care Provider [phone] Emmy Aguilera MD Primary Care Provider + [...] on file Legal Sex Female 2:48 AM COMPUTATIONAL SCIENCES PROFESSOR Gender Identity Female 05/04/2018 2:21 PM CDT [...] on filedocumented in this encounter Care Teams Ophthalmology Technician Relationship Specialty Start Date End Date Héctor Costa MD [address] [place] [address] PCP - General 10/28/16 12/15/22 Emmy Aguilera MD [address] [place] [address] PCP - General Family Medicine 12/16/22 documented as of this encounter
--- OUTSIDE RECORDS SUMMARY | 2025-06-12 07:34 | XMS_ITS | Clinical Summary ---
Author Organization [facility] Address [address] [place] [address] Care Team Providers Care Credit Investigator Name Role Phone Emmy Aguilera MD Primary Care Provider + Allergies Active Allergy Reactions Criticality Noted Date Comments Iodinated Contrast Media Unknown 07/14/2022 Methotrexate Other (See comments) Low 07/14/2022 Elevated liver enzymes Medications aspirin 81 mg tablet daily. Active simvastatin (ZOCOR) 20 mg tablet Take [...] 0.005 % ophthalmic solution nightly 3 Active cholecalciferol (VITAMIN D-3) 1,000 unit Take [...] OTHER DAY 120 tablet 3 5 Active ascorbic acid (ascorbic acid with du hips) 500 mg tablet,chewable Take 1 tablet/chew tab (500 mg total) by mouth daily Active Active Problems Problem Noted Date Diagnosed Date Coronary artery disease invo lving jamestown coronary artery of jam[place] heart without angina pectoris 03/28/2025 Hyperlipidemia associated with type 2 diabetes m ellitus 03/28/2025 Hypertension associated with diabetes 03/28/2025 Mixed hyperlipidemia 06/30/2024 Essential (primary) hypertension 06/30/2024 [...] 04/2018. Assessment & Plan (08/10/2018 11:11 AM LOWER SCHOOL MUSIC TEACHER): The patient reports improved symptoms over last [...] 2015 Assessment & Plan (08/10/2018 11:08 AM LOWER SCHOOL MUSIC TEACHER): We will order RUQ U/S and Acute hepatitis Panel given persistence of LFT elevation Encounters Date Type Department Care Team Description 03/28/2025 8:30 AM CDT Office Visit 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) from Last 3 Months Surgical History Surgery Date Site/Laterality Comments [facility] CHOLECYSTECTOMY Cholecystectomy - (Added by TW Conv) [facility] DELIVERY ONLY Section - (Added by TW Conv) [facility] LIG/TRNSXJ FLP TUBE ABDL/VAG APPR UNI/BI Tubal Ligation - (Added by TW Conv) [facility] TOTAL ABDOMINAL HYSTERECT W/WO RMVL TUBE OVARY Hysterectomy - (Added by TW Conv) COLONOSCOPY 2015 HYSTERECTOMY 2005 SECTION 1989 TUBAL LIGATION 1993 CATARACT EXTRACTION 10/08/2024 - 11/04/2024 Bilateral CATARACT EXTRACTION October 21, 2024 Medical History Medical History Date Comments Personal [...] reflux disease) 2020 Anemia 2015 Diabetes mellitus 1994 Cancer (HCC) 2015 Chronic kidney disease 2021 Arthritis 2016 Osteoporosis 2020 Cataract 2020 Autoimmune disease 2015 Heart disease 2023 Glaucoma 2023 Family History Medical History Relation Name Comments Cancer Brother 1 Daniel Newman Kidney disease Brother 1 Daniel Newman Diabetes Brother 2 Juan Cbee Sanchez Diabetes Father Yanick Daniel Heart disease Father Yanick Daniel Hypertension Father Yanick Daniel Arthritis Maternal Grandmother Yojana Nice Osteoarthritis Maternal Grandmother Yojana [place] Stroke Maternal Grandmother Yojana Nguyenes Arthritis Mother Anayeli Newman Breast cancer Mother Anayeli Newman Family hist ory of malignant neoplasm of breast - (Added by TW Conv) Cancer Mother Anaylei Newman Diabetes Mother Anayeli Newman Heart disease Mother Anayeli Newman Family hist ory of cardiac disorder - (Added by TW Conv) Hypertension Mother Anayeli Newman Vision loss Mother Anayeli Newman Cancer Sister 1 Shahnaz Helms Miscarriages / Stillbirths Sister 1 Shahnaz Helms Thyroid disease Sister 1 Shahnaz Helms Allergy (severe) Sister 2 Yojana Daniel Cancer Sister 2 Yojana Daniel Kidney disease Sister 2 Yojana Daniel Miscarriages / Stillbirths Sister 2 Yojana Daniel Kidney disease Sister 3 Tosha Daniel-Raulito Rheum arthritis Sister 3 Tosha Daniel-Raulito COPD Sister 4 Rhea Sanchez Relation Name Status Comments Brother 1 Daniel Newman Brother 2 Juan C Sanchez Father Yanick Sanchez Maternal Grandmother Yojana Nice Mother Anayeli Newman Sister 1 Shahnaz Helms Sister 2 Yojana Daniel Sister 3 Tosha Daniel-Raulito Sister 4 Rhea Sanchez Alive Social History Tobacco Use Types Packs/Day Years [...] on file Legal Sex Female 2:48 AM LOWER SCHOOL MUSIC TEACHER Gender Identity Female 05/04/2018 2:21 PM CDT Sexual Orientation Not on file Obstetrics History Last Filed Vital Signs Vital Sign Reading Time Taken Comments Blood Pressure 116/66 03/28/2025 8:28 AM CDT Pulse 89 03/28/2025 8:28 AM CDT Temperature 36.8 C (98.2 F) 12/27/2024 8:42 AM CDT Respiratory Rate 16 09/20/2024 9:10 AM LOWER SCHOOL MUSIC TEACHER Oxygen Saturation 93% 03/28/2025 8:28 AM CDT Inhaled Oxygen Concentration - - Weight 68.5 kg (151 lb) 03/28/2025 8:28 AM CDT Height 165.1 cm (5' 5) 03/28/2025 8:28 AM CDT Body Mass Index 25.13 03/28/2025 8:28 AM CDT Plan of Treatment Health Maintenance [...] Well Visit 65+ 12/06/2019 eGFR 09/14/2022 09/14/2021, 11/2020, 07/05/2021, Additional history exists Covid-19 Vaccine (5 - 2024-2 6 season) 2025 12/12/2021, 06/03/2021, 09/10/2020, Additional history exists Influenza Vaccine (#1) 2025 06/27/2021, 2017 Lipid Panel 12/08/2025 12/08/2024, 05/09, 02/15/2015 Hepatitis C Screening Completed 08/27/2018 Zoster Vaccine Completed 10/18/2021, 08/17/2021 Procedures Procedure Name Priority Date/Time Associated Diagnosis Comments LIPID PANEL Routine 12/08/2024 COMPREHENSIVE METABOLIC PANEL Routine 09/14/2021 8:16 AM LOWER SCHOOL MUSIC TEACHER Rheumatoid arthritis involving multiple sites with positive rheumatoid factor (HCC) Long-term use of high-risk medication HEPATITIS PANEL, ACUTE Routine 8 8:00 AM LOWER SCHOOL MUSIC TEACHER Abnormal liver enzymes from Last 3 Months or Most Recently Relevant to Health Maintenance Results * Lipid panel (12/08/2024) SCRIBED Cholesterol, Total 123 30 - 199 mg/dL EXTERNAL LAB SCRIBED Triglycerides 51 <=149 mg/dL EXTERNAL LAB SCRIBED HDL 57 >=40 mg/dL EXTERNAL LAB SCRIBED LDL 53 <=129 mg/dL EXTERNAL LAB Scribed Non-HDL Cholesterol 0 NONE mg/dL EXTERNAL LAB SCRIBED Total Cholesterol/HDL Ratio 0 NONE EXTERNAL LAB Blood 12/08/2024 us Historical Provider LAB BLOOD ORDERABLES Tori l Result EXTERNAL LAB * (ABNORMAL) Comprehensive metabolic panel (09/14/2021 8:16 AM LOWER SCHOOL MUSIC TEACHER) Glucose 90 65 - 99 mg/dL [facility] Comment: Fasting reference interval BUN 27(H) 7 - 25 mg/dL [facility] Creatinine 1.15(H) 0.50 - 0.99 mg/dL [facility] Comment: For patients >49 years of age, the reference limit for Creatinine is approximately 13% higher for people identified as -[place] Islander. eGFR NON-AFR. DOMINICAN 50(L) > OR = 60 mL/min/1. 73m2 [...] enexa Blood specimen (specimen) 09/14/2021 8:16 AM LOWER SCHOOL MUSIC TEACHER 09/14/2021 8:17 AM LOWER SCHOOL MUSIC TEACHER Loraine Fields MD LAB BLOOD ORDERABLES Final Result [facility] [address] [id number] * Hepatitis panel, acute (08/27/2018 8:00 AM LOWER SCHOOL MUSIC TEACHER) Hep A IgM Nonreactive Nonreactive [facility] Comment: Interpretive Data If test is reported as GRAYZONE, new sample should be drawn in two weeks for testing. Current interpretive data was last revised on 2016. Testing performed by: [facility], [address] [place]., [address] Hep B core IgM Nonreactive Nonreactive [facility] Comment: Interpretive Data If test is reported as GRAYZONE, new sample should be drawn for testing. Current interpretive data was last revised on 2016. Testing performed by: [facility], [address] [place]., [address] Hep C Ab Nonreactive Nonreactive [facility] Comment: Interpretive Data Positive and greyzone results should be confirmed by a molecular method. If positive or greyzone, a second separately collected sample should be submitted for Hepatitis C Virus RNA. Detection and Quantitation by Real-Time Reverse Infantry Senior Sergeant-PCR.Current Interpretive data was last revised on 2017. Testing performed by: [facility], [address] [place]., [address] HepBsAg Nonreactive Nonreactive [facility] Comment:Testing performed by : [facility], [address] [place]., [address] Blood specimen (specimen) Venous blood specimen / Unknown 08/27/2018 8:00 AM LOWER SCHOOL MUSIC TEACHER 08/27/2018 1:30 PM LOWER SCHOOL MUSIC TEACHER Narrative [facility] - 08/28/2018 9:31 AM LOWER SCHOOL MUSIC TEACHER Rafa Mathew MD LAB MICROBIOLOGY - GENE RAL ORDERABLES Edited Result - Final [facility] [id number] [facility] Department [place] [address] from Last 3 Months or Most Recently Relevant to Health Maintenance Insurance [facility] [employer] Care Teams Credit Investigator Relationship Specialty Start Date End Date Emmy Aguilera MD PCP - General Family Medicine 12/16/22
== END 2025-06-12 07:31 | disposition home or self-care (01) ==
LOC: ANHFOHIMG 07:31
PROVIDERS: PCP Family Medicine; Visit Provider Family Medicine
DX: Z12.31 Encounter for screening mammogram for malignant neoplasm of breast (principal)
CPT/HCPCS: 77063; 77067